=== PATIENT | male | born 1970 | race Caucasian/White ===

== ENCOUNTER 2024-04-19 11:52 | Emergency (ER) | payer OTHER, SELFPAY ==
--- NOTE | ~2024-04-19 | CT_ITS ---
EXAMINATION: CT CERVICAL SPINE WITHOUT IV CONTRAST HISTORY: trauma. TECHNIQUE: Helical CT of the cervical spine was performed per standard departmental protocol. Coronal and sagittal reformatted images were also evaluated. One or more of the following techniques was used for dose reduction: Automated exposure control, adjustment of the mA and/or kV according to patient size, use of iterative reconstruction technique. DLP: 656.11 mGy-cm COMPARISON: There are no prior studies for comparison. FINDINGS: CERVICAL SPINE: Osseous mineralization is normal. The vertebral bodies maintain normal height without evidence of fracture or subluxation. There is reversal of the normal cervical lordosis. There is moderate degenerative disc disease at the C5-6 level with disc space narrowing and osteophyte formation. Evaluation for disc pathology is limited by lack of intrathecal contrast material. BRAIN: The visualized portion of the brain is unremarkable. SINUSES: The visualized paranasal sinuses, mastoid air cells and middle ear cavities are unremarkable. LUNG APICES: The visualized lung apices are clear. SOFT TISSUES: The visualized paraspinal soft tissues are unremarkable. CT/CT cervical spine wo IV con IMPRESSION: Reversal of normal cervical lordosis. Moderate degenerative disc disease at the C5-6 level. No evidence of fracture or subluxation of the cervical spine. Electronically signed by: Alexis Trujillo MD 04/19/2024 01:59 PM [facility]
--- NOTE | ~2024-04-19 | XR_ITS ---
EXAMINATION: XR KNEE, LEFT CLINICAL INFORMATION: trauma COMPARISON: None available. TECHNIQUE: Four views of the left knee. FINDINGS: No acute cortical disruption or malalignment. There is a bipartite patella. There is suprapatellar bursa joint effusion, moderate to large volume. Mild joint space narrowing, medial compartment. Small marginal osteophyte formation in the posterior superior and posterior inferior patella. XR/XR knee LT 3V IMPRESSION: No acute fracture or dislocation. Suprapatellar bursa joint effusion, moderate to large volume. Internal derangement cannot be excluded. Electronically signed by: Jacob Dennis MD 04/19/2024 01:18 PM [facility] [place]
--- NOTE | ~2024-04-19 | CT_ITS ---
EXAMINATION: CT HEAD WITHOUT IV CONTRAST HISTORY: trauma. TECHNIQUE: Unenhanced helical CT of the head was performed per standard departmental protocol. Coronal and sagittal reformats of the head were also evaluated. One or more of the following techniques was used for dose reduction: Automated exposure control, adjustment of the mA and/or kV according to patient size, use of iterative reconstruction technique. DLP: 772.63 mGy-cm COMPARISON: There are no prior studies for comparison. FINDINGS: BRAIN: The brain parenchyma is unremarkable. There is normal kumar/white differentiation. The ventricular system is normal in size and configuration. There is no mass effect or midline shift. No intra- or extra-axial fluid collections are identified. SINUSES: The visualized paranasal sinuses are clear. The mastoid air cells and middle ear cavities are well pneumatized. ORBITS: The visualized orbits are unremarkable. BONES/SOFT TISSUES: The extracranial soft tissues are unremarkable. The calvarium is intact. No suspicious lytic or sclerotic lesions. CT/CT head/brain wo IV con IMPRESSION: Unremarkable unenhanced head CT. Electronically signed by: Alexis Trujillo MD 04/19/2024 01:55 PM [facility] [place]
[2024-04-19 12:43] VITALS: BP 152/103; PULSE 77; RESP 18; TEMP 35.7; O2SAT 96; BMI 31.7
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
[2024-04-19 16:34] VITALS: BP 150/103; PULSE 59; RESP 16; TEMP 36.6; O2SAT 98
[2024-04-19 16:38] LABS: MANUAL DIFF FLAG NO
[2024-04-19 16:39] LABS: Basophils Absolute Auto 0.1 X10*3/uL (0.0-0.2); Basophils Percent Auto 0.6 % (0-2); Eosinophils Absolute Auto 0.1 X10*3/uL (0.0-0.4); Eosinophils Percent Auto 1.1 % (0-4); Hemoglobin 16.1 g/dl (14.0-18.0); Imm Gran Abs Auto 0.03 X10*3/uL (0.00-0.03); Imm Gran Pct Auto 0.4 % (0.0-0.4); Lymphocytes Absolute Auto 2.6 X10*3/uL (1.2-4.9); Mean Corpuscular HGB Conc 34.3 g/dl (31.0-36.0); Mean Corpuscular Hemoglobin 30.7 pg (27.0-33.0); Mean Corpuscular Volume 89.5 fL (80.0-98.0); Mean Platelet Volume 10.9 fL (9.4-12.4); Monocytes Absolute Auto 0.5 X10*3/uL (0.1-1.2); Monocytes Percent Auto 6.1 % (2-11); Neutrophils Absolute Auto 4.9 x10*3/uL (2.0-8.3); Neutrophils Percent Auto 59.8 % (45-73); Platelet Count 182 X10*3/uL (160-400); Red Blood Count 5.25 X10*6/uL (4.60-5.80); Red Cell Distribution Width 13.5 % (11.0-16.0); White Blood Count 8.2 X10*3/uL (4.8-10.8)
[2024-04-19 16:53] LABS: Anion Gap 10 (12-20); Blood Urea Nitrogen 16 mg/dL (9-16); Calcium 9.2 mg/dL (8.4-10.2); Carbon Dioxide 28 mmol/L (22-29); Chloride 108 mmol/L (96-108); Creatinine Clr Calc Pharmacy 105.5; Estimated Glomerular Filt Rate > 60; Glucose Random 91 mg/dL (60-115); Sodium 142 mmol/L (135-145)
[2024-04-19] MEDS: Metoclopramide HCl 10 MG TABLET PO (17:15)
[2024-04-19] MEDS: Acetaminophen 325 MG TABLET 650 MG PO (17:15)
[2024-04-19] MEDS: Ibuprofen 600 MG TABLET PO (17:15)
[2024-04-19 17:33] VITALS: BP 152/103; PULSE 54; RESP 16; TEMP 36.8; O2SAT 98
[2024-04-19 17:48] VITALS: BP 152/103; PULSE 54; RESP 16; TEMP 36.8; O2SAT 98
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
--- OUTSIDE RECORDS SUMMARY | 2024-04-19 19:32 | XMS_ITS | Clinical Summary ---
Author Organization [address] [facility] Address [address] [place] [address] Phone Care Team Providers Care Signaler Name Role Phone Willy Cha MD Primary Care Provider [phone] Allergies No known active allergies Medications bisacodyL (DULCOLAX) 5 mg EC tablet Sig: Take 2 tablets by mouth right before your first dose of liquid prep. Active MULTIVITAMIN ORAL Take by mouth 1 (one) time each day. Active vitamin B comp and C no.3 (B Complex Plus Vitamin C) 24-01-20-5-300 mg capsule Take by mouth 1 (one) time each day. Active sildenafiL (VIAGRA) 100 mg tablet Take 1 tablet (100 mg total) by mouth as needed. Active testosterone cypionate (DEPO-TESTOTERO NE) 200 mg/mL injection Inject 0.05 mL into the muscle every 30 days. Active meloxicam (MOBIC) 15 mg tablet Take 1 tablet (15 mg total) by mouth 1 (one) time each day. Active Surgical History Surgery Date Site/Laterality Comments LEG SURGERY Right FEMUR FX SHOULDER SURGERY Right ELBOW SURGERY Right FINGER 3RD DIGIT RT (MIDDLE) Left TIP AMPUTATION, RECONNECTION Medical History Medical History Date Comments GERD (gastroesophageal reflux disease) Social History Tobacco Use Types Packs/Day Years Used Date Smoking Tobacco: Former Cigarettes Q uit: 2014 Tobacco Cessation:Counseling Given: Not Answered Alcohol Use Standard Drinks/Week Comments Yes 5 (1 standard drink = 0.6 oz pur e alcohol) WEEKLY Interpersonal Safety Answer Date Record ed Physical Abuse 01/11/2024 Verbal Abuse 01/11/2024 Sex and Gender Information Value Date Recorded Sex Assigned at Male 01/11/2024 3:07 PM EST Legal Sex Male 9:01 PM EST Gender Identity Male 01/11/2024 3:07 PM EST Sexual Orientation Straight 01/11/2024 3: 07 PM EST Obstetrics History Last Filed Vital Signs Vital Sign Reading Time Taken Comments Blood Pressure 131/99 01/11/2024 4:51 PM EST Pulse 62 01/11/2024 4:51 PM EST Temperature 36.4 ??C (97.6 ??F) 01/11/2024 4:31 PM ES T Respiratory Rate 19 01/11/2024 4:51 PM EST Oxygen Saturation 98% 01/11/2024 4:51 PM EST Inhaled Oxygen Concentration - - Weight 95.3 kg (210 lb) 01/11/2024 3:42 PM EST Height 175.3 cm (5' 9 ) 01/11/2024 3:42 PM EST Body Mass Index 31.01 01/11/2024 3:42 PM EST Plan of Treatment Health Maintenance Due Date Last Done Comments DTaP,Tdap,and Td Vaccines (1 - Tdap) 1987 Hepatitis B Vaccines (1 of 3 - 19+ 3-dose series) 1987 Pneumococcal Vaccine: 50+ Ye ars (1 of 1 - PCV) 2018 Zoster Vaccines (1 of 2) 2018 Cholesterol Screening (Lipid Panel) 03/19/2023 Depression Screening 03/19/2023 HIV Screening 03/19/2023 Hepatitis C Screening 03/19/2023 Social Influencers of Health Screening 03/19/2023 COVID-19 Vaccine ( - 2023-2 5 season) 2023 Influenza Vaccine (#1) 2023 Colorectal Cancer Screening: Colonoscopy 01/10/2034 01/11/2024 HIB Vaccines Aged Out No longer eligi ble based on patient's age to complete this topic HPV Vaccines Aged Out No longer eligi ble based on patient's age to complete this topic Hepatitis A Vaccines Aged Out No long er eligible based on patient's age to complete this topic IPV Vaccines Aged Out No longer eligi ble based on patient's age to complete this topic MMR Vaccines Aged Out No longer eligi ble based on patient's age to complete this topic Meningococcal ACWY Vaccine Aged Out N o longer eligible based on patient's age to complete this topic Meningococcal B Vacine Aged Out No lo nger eligible based on patient's age to complete this topic Pneumococcal Vaccine: Pediat rics (0 to 5 Years) and At-Risk Patients (6 to 64 Years) Aged Out No longer eligi ble based on patient's age to complete this topic RSV Immunization Patients Un eboni 20 months Aged Out No longer eligible b ased on patient's age to complete this topic Varicella Vaccines Aged Out No longer eligible based on patient's age to complete this topic Procedures Procedure Name Priority Date/Time Associated Diagnosis Comments COLONOSCOPY Routine 01/11/2024 4:30 PM EST Screen for colon cancer from Last 3 Months or Most Recently Relevant to Health Maintenance Results * COLONOSCOPY Anesthesia - MAC; [facility] ENDOSCOPY (01/11/2024 4:30 PM EST) Anatomical Region Laterality Modality Endoscopy 01/11/2024 4:12 PM EST Impressions 01/11/2024 4:33 PM EST - Internal hemorrhoids. ? - The examination was otherwise normal. ? - No specimens collected. Recommendation: ?- Discharge patient to home. ? - Repeat colonoscopy in 10 years for screening ? purposes. Narrative 01/11/2024 4:[address] [facility] Patient Name: Inderjit Mcclure Procedure Date: 01/11/2024 4:12 PM Date of : 1970 Age: 53 Room: ROOM 17 Gender: Male Note Status: Finalized Attending MD: Trang Traylor MD, Procedure Date No Time: 01/11/2024 Procedure: ? Colonoscopy Indications: ? Screening for colorectal malignant neoplasm Providers: ? Trang Traylor MD Referring MD: ?Willy Cha MD Medicines: ? Monitored Anesthesia Care Complications: ? No immediate complications. Estimated Blood Loss: ? Estimated blood loss: none. Procedure: ? Pre-Anesthesia Assessment: ? - Prior to the procedure, a History and Physical was ? performed, and patient medications and allergies were ? reviewed. The patient is competent. The risks and ? benefits of the procedure and the sedation options and ? risks were discussed with the patient. All questions ? were answered and informed consent was obtained. ? Patient identification and proposed procedure were ? verified by the physician, the nurse, the consumer science teacher ? and the customer support technician in the pre-procedure area in the ? endoscopy suite. Mental Status Examination: alert and ? oriented. Airway Examination: normal oropharyngeal ? airway and neck mobility. Respiratory Examination: ? clear to auscultation. CV Examination: normal. ? Prophylactic Antibiotics: The patient does not require ? prophylactic antibiotics. Prior Anticoagulants: The ? patient has taken no anticoagulant or antiplatelet ? agents. ASA Grade Assessment: II - A patient with mild ? systemic disease. After reviewing the risks and ? benefits, the patient was deemed in satisfactory ? condition to undergo the procedure. The anesthesia ? plan was to use monitored anesthesia care (MAC). ? Immediately prior to administration of medications, ? the patient was re-assessed for adequacy to receive ? sedatives. The heart rate, respiratory rate, oxygen ? saturations, blood pressure, adequacy of pulmonary ? ventilation, and response to care were monitored ? throughout the procedure. The physical status of the ? patient was re-assessed after the procedure. ? After I obtained informed consent, the scope was ? passed under direct vision. Throughout the procedure, ? the patient's blood pressure, pulse, and oxygen ? saturations were monitored continuously.The Olympus ? Pediatric Colonoscope was introduced through the anus ? and advanced to the cecum, identified by appendiceal ? orifice and ileocecal valve. The colonoscopy was ? performed without difficulty. The patient tolerated ? the procedure well. The quality of the bowel ? preparation was good. Findings: ?The perianal and digital rectal examinations were ? normal. ? Internal hemorrhoids were found during retroflexion. ? The hemorrhoids were Grade I (internal hemorrhoids ? that do not prolapse). ? The exam was otherwise without abnormality. Procedure Code(s): ? --- Professional --- ? G0121, Colorectal cancer screening; colonoscopy on ? individual not meeting criteria for high risk Diagnosis Code(s): ? --- Professional --- ? Z12.11, Encounter for screening for malignant neoplasm ? of colon CPT copyright 2020 [employer]. All rights reserved. The codes documented in this report are preliminary and upon tilting head band sawyer review may be revised to meet current compliance requirements. Trang Traylor MD 01/11/2024 4:33:32 PM This report has been signed electronically.Trang Traylor MD Number of Addenda: 0 Note Initiated On: 01/11/2024 4:12 PM Scope Withdrawal Time: 0 hours 5 minutes 46 seconds Scope In: 4:22:26 PM Scope Out: 4:30:43 PM ? Endoscopy Department at [facility] - [address] [place] [address], ? [place] [address] Procedure Note Trang Traylor MD - 01/11/2024 [facility] Patient Name: Inderjit Mcclure Procedure Date: 01/11/2024 4:12 PM Date of : 1970 Age: 53 Room: ROOM 17 Gender: Male Note Status: Finalized Attending MD: Trang Traylor MD, Procedure Date No Time: 01/11/2024 Procedure: Colonoscopy Indications: Screening for colorectal malignant neoplasm Providers: Trang Traylor MD Referring MD: Willy Cha MD Medicines: Monitored Anesthesia Care Complications: No immediate complications. Estimated Blood Loss: Estimated blood loss: none. Procedure: Pre-Anesthesia Assessment: - Prior to the procedure, a History and Physicalwas performed, and patient medications and allergieswere reviewed. The patient is competent. The risks and benefits of the procedure and the sedation optionsand risks were discussed with the patient. Allquestions were answered and informed consent was obtained. Patient identification and proposed procedure were verified by the physician, the nurse, theanesthetist and the customer support technician in the pre-procedure area in the endoscopy suite. Mental Status Examination: alertand oriented. Airway Examination: normal oropharyngeal airway and neck mobility. Respiratory Examination: clear to auscultation. CV Examination: normal. Prophylactic Antibiotics: The patient does notrequire prophylactic antibiotics. Prior Anticoagulants: The patient has taken no anticoagulant or antiplatelet agents. ASA Grade Assessment: II - A patient withmild systemic disease. After reviewing the risks and benefits, the patient was deemed in satisfactory condition to undergo the procedure. The anesthesia plan was to use monitored anesthesia care (MAC). Immediately prior to administration of medications, the patient was re-assessed for adequacy to receive sedatives. The heart rate, respiratory rate, oxygen saturations, blood pressure, adequacy of pulmonary ventilation, and response to care were monitored throughout the procedure. The physical status ofthe patient was re-assessed after the procedure. After I obtained informed consent, the scope was passed under direct vision. Throughout theprocedure, the patient's blood pressure, pulse, and oxygen saturations were monitored continuously.The Olympus Pediatric Colonoscope was introduced through theanus and advanced to the cecum, identified byappendiceal orifice and ileocecal valve. The colonoscopy was performed without difficulty. The patient tolerated the procedure well. The quality of the bowel preparation was good. Findings: The perianal and digital rectal examinations were normal. Internal hemorrhoids were found duringretroflexion. The hemorrhoids were Grade I (internal hemorrhoids that do not prolapse). The exam was otherwise without abnormality. Procedure Code(s): --- Professional --- G0121, Colorectal cancer screening; colonoscopy on individual not meeting criteria for high risk Diagnosis Code(s): --- Professional --- Z12.11, Encounter for screening for malignantneoplasm of colon CPT copyright 2020 [employer]. All rights reserved. The codes documented in this report are preliminary and upon tilting head band sawyer reviewmay be revised to meet current compliance requirements. Trang Traylor MD 01/11/2024 4:33:32 PM This report has been signed electronically.Trang Traylor MD Number of Addenda: 0 Note Initiated On: 01/11/2024 4:12 PM Scope Withdrawal Time: 0 hours 5 minutes 46 seconds Scope In: 4:22:26 PM Scope Out: 4:30:43 PM Endoscopy Department at [facility] - [address] [place] [phone] IMPRESSION: - Internal hemorrhoids. - The examination was otherwise normal. - No specimens collected. Recommendation: - Discharge patient to home. - Repeat colonoscopy in 10 years for screening purposes. Trang Traylor MD GI~PROCEDURE ORDERABLES Fin al Result from Last 3 Months or Most Recently Relevant to Health Maintenance Insurance MEDICAID [place] [employer] [place] [employer]AGE [address] [place] [address] Care Teams Signaler Relationship Specialty Start Date End Date Willy Cha MD PCP - General 10/02/22
--- OUTSIDE RECORDS SUMMARY | 2024-04-19 19:32 | XMS_ITS ---
Author Organization [facility] Address [address] [facility] [address] [place] [address] Care Team Providers Care Ice Guard Tester Name Role Phone WILLY CHA Primary Care Provider Willy Cha Unavailable [phone] REASON FOR VISIT Rx Refill Medications Medication SIG (Take, Route, Frequency, Duration) Notes Start Date End Date Status Meloxicam 15 MG 1 tablet Orally Once a day for 30 day(s) 07/08/2022 Active Testosterone Cypionate 200 MG/ML 0.5ml Intramuscular monthly 12/18/2022 Active Testosterone Cypionate 200 MG/ML 0.05ML Intramuscular Injection MONTHLY for 90 days 09/10/2022 Active Encounters Encounter Location Date Provider Diagnosis [address] [place] [address] 12/16/2022 WILLY CHA Right knee pain, unspecified chronicity M25.561 and Hypogonadism in male E29.1 Assessments Encounter Date Diagnosis (ICD Code) Assessment Notes Treatment Notes Treatment Clinical Notes Section Notes 12/16/2022 Right knee pain, unspecified chronicity (ICD-10 - M25.561) 12/16/2022 Hypogonadism in male (ICD-10 - E29.1) 07/30/22 Will give replacement testosterone injection Plan Of Treatment Medication Medication Name Sig Start Date Stop Date Notes Meloxicam 15 MG 1 tablet Orally Once a day for 30 day(s) 07/08/2022 Testosterone Cypionate 200 MG/ML 0.5ml Intramuscular monthly 12/18/2022 Testosterone Cypionate 200 MG/ML 0.05ML Intramuscular Injection MONTHLY for 90 days 09/10/2022 Progress Notes * Inderjit MCCLUREDOB:1970 (52 yo M)Acc No.[id number]:12/16/2022 Patient:?Inderjit Mcclure :1970???Age:52 Y???Sex:Male Address:[facility] [address] [place] [address], [place], [address] * Refills? Refill Meloxicam Tablet, 15 MG, Orally, 30, 1 tablet, Once a day, 30 day(s), Refills=3 Refill Testosterone Cypionate Solution, 200 MG/ML, Intramuscular Injection, 3, 0.05ML, MONTHLY, 90 days, Refills=2 Refill Testosterone Cypionate Solution, 200 MG/ML, Intramuscular, 4, 0.5ml, monthly, Refills=3 * true * Date:? Generated for Peña ash/Yrn/Saravanansmitting on:?04/19/2024 07:31 PM EST
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
--- OUTSIDE RECORDS SUMMARY | 2024-04-19 19:32 | XMS_ITS ---
Author Organization [facility] Address [address] [facility] [address] [place] [address] Care Team Providers Care Insurance Claim Representative Name Role Phone WILLY CHA Primary Care Provider Willy Cha Unavailable [phone] REASON FOR VISIT Nurse Visit: Testosterone Injection Medications Medication SIG (Take, Route, Frequency, Duration) Notes Start Date End Date Status Testosterone Cypionate 200 MG/ML 0.5 mL Intramuscular monthly 09/10/2022 Active Meloxicam 15 MG 1 tablet Orally Once a day for 30 day(s) 07/08/2022 01/07/2023 Active Testosterone Cypionate 200 MG/ML 0.05ML Intramuscular MONTHLY 09/10/2022 Active Sildenafil Citrate 100 MG 1 tablet as ne eded Orally Once a day 01/21/2022 Active Syringe/Needle (Disp) 23G X 1-1/2 3 ML SYRINGE/NEEDLE DX: R68.82 USE MONTHLY TO INJECT TESTOSTERONE 08/10/2022 Active Multi-Vitamin - 1 tablet Orally Once a day Active Vitamin B Complex - as directed Orally Active Encounters Encounter Location Date Provider Diagnosis [facility] [address] [facility] [address] [place] [address] 12/16/2022 WILLY CHA Hypogonadism in male E29.1 Assessments Encounter Date Diagnosis (ICD Code) Assessment Notes Treatment Notes Treatment Clinical Notes Section Notes 12/16/2022 Hypogonadism in male (ICD-10 - E29.1) 07/30/22 Will give replacement testosterone injection Plan Of Treatment No Information Medications Administered Medication Instructions Date of Administration Dosage Notes TESTOSTERONE 12/16/2022 0.5 mL Patient tole rated well. Progress Notes * Inderjit MCCLUREDOB:1970 (52 yo M)Acc No.[id number]:12/16/2022 Progress Note Patient:?Inderjit Mcclure Provider:?Willy Cha MD :1970???Age:52 Y???Sex:Male Kj e:12/16/2022 Address:[facility] [address] [place] [address], [place], [id number] Subjective: * Chief Complaints: * ???1. Nurse Visit: Testoster one Injection. * HPI: ???Constitutional:? Patient came in to office today for monthly testosterone injection. -SS-. * Medical History:? * Medications:?Taking Multi-Vi tamin - Tablet 1 tablet Orally Once a day, Taking Vitamin B Complex - Capsule as directed Orally , Taking Sildenafil Citrate 100 MG Tablet 1 tablet as needed Orally Once a day, Taking Syringe/Needle (Disp) 23G X 1-1/2 3 ML Miscellaneous SYRINGE/NEEDLE DX: R68.82 USE MONTHLY TO INJECT TESTOSTERONE, Taking Meloxicam 15 MG Tablet 1 tablet Orally Once a day, stop date 01/07/2023, Taking Testosterone Cypionate 200 MG/ML Solution 0.05ML Intramuscular MONTHLY, Taking Testosterone Cypionate 200 MG/ML Solution 0.5 mL Intramuscular monthly Objective: Assessment: * Assessment: 1.?Hypogonadism in male - E2 9.1 (Primary), 07/30/22 Will give replacement testosterone injection? Plan: * Treatment: * Therapeutic Injections:? TESTOSTERONE : 0.5 mL (Route: Intramuscular) given by Yisel Corbett on right gluteus (Hypogonadism in male) * Procedure Codes:? TESTOSTERO NE * Billing Information: * Visit Code:? 40596 Office Visit, Est Pt., Level 1. * Procedure Codes:? TESTOSTERONE. * Sign off status: Completed true * Provider:?Willy Cha MD Date:?2022 Generated for Johani ng/Faxing/eTransmitting on:?04/19/2024 07:31 PM EST History and Physical Notes * HPI (History of Present Illness) Category Sub-Category Detail Notes Category Not es Constitutional Patient came in to office today for monthly testosterone injection. -SS-
== END 2024-04-19 17:49 | disposition home or self-care (01) ==
PROVIDERS: Emergency Provider Student in an Organized Health Care Education/Training Program; PCP Internal Medicine
DX: G44.309 Post-traumatic headache, unspecified, not intractable (principal); M25.562 Pain in left knee
CPT/HCPCS: 36415; 70450; 72125; 73562; 80048; 85025; 99283; 99284

== ENCOUNTER → 2024-04-19 12:44 | Outpatient (BNV) | payer OTHER, SELFPAY | PROVIDERS: PCP Internal Medicine; Visit Provider Radiology Diagnostic Radiology | DX: S19.9XXA Unspecified injury of neck, initial encounter (principal); S09.90XA Unspecified injury of head, initial encounter; M25.462 Effusion, left knee | CPT/HCPCS: 70450; 72125; 73562 ==

== ENCOUNTER 2024-10-09 08:53 | Emergency (ER) | payer OTHER, SELFPAY ==
[2024-10-09 09:18] VITALS: BP 159/99; PULSE 65; RESP 16; TEMP 37; O2SAT 97; BMI 30.1
--- NOTE | 2024-10-09 09:22 | ED.SKABFB ---
HPI - Skin/Abscess/Foreign Bdy General Chief complaint: Skin/Abscess/Foreign Body Stated complaint: Rash around body for a week Time Seen by Provider: 10/09/24 09:23 Source: patient Mode of arrival: ambulatory Limitations: no limitations History of Present Illness ED Provider: BRYCE SCHUMACHER PA-C HPI narrative: 54 year old male presents to the ED today for evaluation of diffuse puritic body rash x1.5 weeks. Rash is to bilateral upper/lower extremities and torso. Denies rash to palms/soles. He has been taking Benadryl which temporarily relieves the itching. Admits to recent life stressors, had to put his 14 year old dog down last week. States he has been outside occasionally however denies any known tick or insect bites. Denies new lotions, soaps, detergents. Denies new medications or antibiotics. Related Data Previous Rx's ?Medication ?Instructions ?Recorded acetaminophen 650 mg 650 mg PO Q12H 3 days #6 tabs 04/19/24 tablet,extended release (Tylenol 8 Hour) metoclopramide HCl 5 mg tablet 5 mg PO DAILY 3 days #3 tabs 04/19/24 (Reglan) naproxen 500 mg tablet 500 mg PO BID 3 days #6 tabs 04/19/24 prednisone 50 mg tablet 50 mg PO DAILY 4 days #4 tabs 10/09/24 Allergies Allergy/AdvReac Type Severity Reaction Status Date / Time No Known Allergies Allergy Verified 10/09/24 09:19 Review of Systems Review of Systems: Yes all other systems are reviewed and are negative PMFSH Past Medical History Attestation statement: The following information was validated with the patient. Source: old records reviewed and nursing notes reviewed Social History Social History Advance Directives: No Advance Directives Information Provided: Yes Physical Exam Vital Signs: Vital Signs: Last Vital Signs Temp 98.6 F 10/09/24 11:47 Pulse 65 10/09/24 11:47 Resp 16 10/09/24 11:47 BP 159/99 H 10/09/24 11:47 Pulse Ox 97 10/09/24 11:47 O2 Del Method Room Air 10/09/24 09:18 BMI result Body Mass Index 30.1 hypertensive, vitals are otherwise wnl General: Well appearing, in no acute distress. Skin: + erythematous maculopapular rash noted to all 4 extremities and torso, no sloughing, spares palms/soles/mucous membranes/webbed spaces, no target lesions, non dermatomal pattern Head: Normocephalic, atraumatic. EENT: Hearing is intact b/l. Conjunctiva clear. Sclera is anicteric. PERRLA. EOM intact. Moist mucous membranes.? Cardiac: Chest wall symmetric. RRR Lungs: Normal respiratory effort without accessory muscle use. CTA bilaterally. Back: No midline spinous or paraspinal tenderness. No step off deformity. Ext: +see above Medications Administered Discontinued Medications Generic Name Dose Route Start Last Admin Trade Name Freq PRN Reason Stop Dose Admin Diphenhydramine HCl 50 mg 10/09/24 11:26 10/09/24 11:39 Diphenhydramine Hcl 25 Mg Capsule PO 10/09/24 11:27 50 mg ONCE ONE Administration Methylprednisolone Sodium Succinate 60 mg 10/09/24 11:26 10/09/24 11:39 Methylprednisolone Sod Succ 125 Mg/2 Ml Vial IM 10/09/24 11:27 60 mg ONCE ONE Administration Medical Decision Making Medical Decision Making [facility] Narrative: 54 year old male presents to the ED today for evaluation of diffuse puritic body rash x1.5 weeks. hypertensive, vitals are otherwise wnl. he is well appearing, in NAD. on exam there is an erythematous maculopapular rash noted to all 4 extremities and torso, no sloughing, spares palms/soles/mucous membranes/webbed spaces, no target lesions, non dermatomal pattern. Differential diagnosis includes contact/atopic/eczematous dermatitis, psoriasis. History and exam findings not consistent with lyme/tick bourne illness, herpes zoster/simplex, scabies, HFM,? dangerous etiologies of rash such as SJS/TEN, or secondary dangerous causes such as petechial rashes from thrombocytopenia or rickettsial infections.? Plan at this time is to treat symptomatically, instruct to follow up with PCP or derm PRN. Differential Diagnosis Differential Diagnoses: The differential diagnosis associated with the presentation includes As above Admission/Observation not indicated Lab Data [facility] Lab Attestation statement: I reviewed the patient's lab results. As above 10/09/24 09:28 10/09/24 09:28 Labs: Lab Results 10/09/24 10/09/24 Range/Units 09:28 11:34 WBC 6.6 (4.8-10.8) X10*3/uL RBC 4.87 (4.60-5.80) X10*6/uL Hgb 14.8 (14.0-18.0) g/dl Hct 44.5 (42.0-52.0) % MCV 91.4 (80.0-98.0) fL MCH 30.4 (27.0-33.0) pg MCHC 33.3 (31.0-36.0) g/dl RDW 13.1 (11.0-16.0) % Plt Count 166 (160-400) X10*3/uL MPV 11.6 (9.4-12.4) fL Immature Gran % (Auto) 0.3 (0.0-0.4) % Neut % (Auto) 65.2 (45-73) % Lymph % (Auto) 24.3 (20-40) % [place] % (Auto) 6.5 (2-11) % Eos % (Auto) 2.9 (0-4) % Baso % (Auto) 0.8 (0-2) % Lymph # (Auto) 1.6 (1.2-4.9) X10*3/uL [place] # (Auto) 0.4 (0.1-1.2) X10*3/uL Eos # (Auto) 0.2 (0.0-0.4) X10*3/uL Baso # (Auto) 0.1 (0.0-0.2) X10*3/uL Abs Immat Gran (auto) 0.02 (0.00-0.03) X10*3/uL Absolute Neuts (auto) 4.3 (2.0-8.3) x10*3/uL Absolute Nucleated RBC 0.000 (0.0-0.012) X10*3/uL Nucleated RBC % (auto) 0.0 (0.0-0.2) /100WBC Sodium 140 (135-145) mmol/L Potassium 4.4 (3.3-5.1) mmol/L Chloride 109 H (96-108) mmol/L Carbon Dioxide 23 (22-29) mmol/L Anion Gap 12 (12-20) BUN 13 (9-16) mg/dL Creatinine 0.85 (0.5-1.4) mg/dL Estim Creat Clear Calc 109.0 Estimated GFR > 60 Random Glucose 121 H (60-115) mg/dL Calcium 8.8 (8.4-10.2) mg/dL Total Bilirubin 0.5 (0.0-1.0) mg/dL AST 28 (5-37) U/L ALT 29 (0-40) U/L Alkaline Phosphatase 62 (39-117) U/L Total Protein 6.8 (6.5-8.0) g/dL Albumin 4.0 (3.5-5.0) g/dL A.phagocytophil DNA PCR NOT DETECTED (NOT DETECTED) Babesia microti DNA PCR NOT DETECTED (NOT DETECTED) Borrelia sp DNA (PCR) NOT DETECTED (NOT DETECTED) Lyme Screen IgG & IgM <0.90 index Lyme Progressive Test TNP Borrelia miyamotoi (PCR) NOT DETECTED (NOT DETECTED) E.chaffeensis DNA (PCR) NOT DETECTED (NOT DETECTED) Tick-borne Disease PCR SEE NOTE Prescription Management I considered prescription management with: Other (prednisone) Social Determinants Patient?s care significantly limited by Social Determinants of Health including: Other Social Determinant of Health Critical Care Time Critical Care Time Critical Care Time: No Discharge Plan Discharge Clinical Impression: Rash Patient Disposition: Home, Self-Care Instructions: Acute Rash (ED) Additional Instructions: You were evaluated in the ED today for rash. Your blood work is reassuring. Your blood has been sent for tick/ lyme testing. This testing will take a few days to results. You will be contacted with any positive results. As of now, the etiology of your rash is unclear. A four day course of Prednisone has been sent to your pharmacy. Please take this over the next 4 days starting tomorrow. You already received a dose of steroids in the ED today. You may also take OTC Benadryl and/or Zyrtec as needed for itching. Please follow-up with your primary care provider regarding your visit today. You have also been provided with a referral to a electric razor assembler for follow-up. Please call him to make a an appointment. They will not call you Return to the Emergency Department if you experience worsening or spreading rash, worsening or uncontrolled pain, fevers 100.4?F or greater, recurrent vomiting, shortness of breath, discharge from your rash, or any other concerning symptoms. In the case of an emergency call 911. Prescriptions: New prednisone 50 mg tablet 50 mg PO DAILY 4 Days Qty: 4 0RF No Action metoclopramide HCl [Reglan] 5 mg tablet 5 mg PO DAILY 3 Days Qty: 3 0RF acetaminophen [Tylenol 8 Hour] 650 mg tablet extended release 650 mg PO Q12H 3 Days Qty: 6 0RF naproxen 500 mg tablet 500 mg PO BID 3 Days Qty: 6 0RF Referrals: [facility] [Provider Group] Philip Shultz MD [Physician, Allergy & Immunology] Willy Cha MD [Primary Care Provider, Integrative Medicine] Interventions: ED Discharge Assessment Last Done: 10/09/24 11:47 Discharge Date/Time: 10/09/24 11:47 Print Language: Grenadian
[2024-10-09 09:33] LABS: MANUAL DIFF FLAG NO
[2024-10-09 09:36] LABS: Hematocrit 44.5 % (42.0-52.0); Hemoglobin 14.8 g/dl (14.0-18.0); Imm Gran Abs Auto 0.02 X10*3/uL (0.00-0.03); Imm Gran Pct Auto 0.3 % (0.0-0.4); Lymphocytes Absolute Auto 1.6 X10*3/uL (1.2-4.9); Mean Corpuscular HGB Conc 33.3 g/dl (31.0-36.0); Mean Corpuscular Hemoglobin 30.4 pg (27.0-33.0); Mean Corpuscular Volume 91.4 fL (80.0-98.0); NRBC Abs Auto 0.000 X10*3/uL (0.0-0.012); NRBC Pct Auto 0.0 /100WBC (0.0-0.2); Platelet Count 166 X10*3/uL (160-400); Red Blood Count 4.87 X10*6/uL (4.60-5.80); White Blood Count 6.6 X10*3/uL (4.8-10.8)
[2024-10-09 10:03] LABS: Alanine Aminotransferase 29 U/L (0-40); Albumin Level 4.0 g/dL (3.5-5.0); Alkaline Phosphatase 62 U/L (39-117); Anion Gap 12 (12-20); Aspartate Amino Transferase 28 U/L (5-37); Blood Urea Nitrogen 13 mg/dL (9-16); Calcium 8.8 mg/dL (8.4-10.2); Carbon Dioxide 23 mmol/L (22-29); Chloride 109 mmol/L (96-108); Creatinine Clr Calc Pharmacy 109.0; Estimated Glomerular Filt Rate > 60; Potassium 4.4 mmol/L (3.3-5.1); Sodium 140 mmol/L (135-145); Total Protein 6.8 g/dL (6.5-8.0)
[2024-10-09 11:47] VITALS: BP 159/99; PULSE 65; RESP 16; TEMP 37; O2SAT 97
--- OUTSIDE RECORDS SUMMARY | 2024-10-09 12:49 | XMS_ITS | Clinical Summary ---
Author Organization [address] [facility] Address [address] [place] [address] Phone Care Team Providers Care Instructional Materials Director Name Role Phone Willy Cha MD Primary Care Provider [phone] Allergies No known active allergies Medications bisacodyL (DULCOLAX) 5 mg EC tablet Sig: Take 2 tablets by mouth right before your first dose of liquid prep. Active MULTIVITAMIN ORAL Take by mouth 1 (one) time each day. Active vitamin B comp and C no.3 (B Complex Plus Vitamin C) 25-91-56-5-300 mg capsule Take by mouth 1 (one) [...] 62 01/11/2024 4:51 PM EST Temperature 36.4 C (97.6 F) 01/11/2024 4:31 PM EST Respiratory Rate 19 01/11/2024 4:51 PM EST [...] 2) 2018 Cholesterol Screening (Lipid Panel) 03/19/2023 HIV Screening 03/19/2023 Hepatitis C Screening 03/19/2023 Social Influencers of Health Screening 03/19/2023 COVID-19 Vaccine (1 - 2023-2 5 season) 2023 Depression Screening 02/23/2024 Influenza Vaccine (#1) 2024 Colorectal Cancer Screening: Colonoscopy 01/10/2034 01/11/2024 HIB [...] age to complete this topic Meningococcal B Vaccine Aged Out No l onger eligible based on patient's age to complete [...] Maintenance Results * COLONOSCOPY Anesthesia - MAC; [facility] ENDOSCOPY (01/11/2024 4:30 PM EST) Anatomical Region Laterality Modality Endoscopy 01/11/2024 4:12 PM EST Impressions 01/11/2024 4:33 PM EST - Internal hemorrhoids. - The examination was otherwise normal. - No specimens collected. Recommendation: - Discharge patient to home. - Repeat colonoscopy in 10 years for screening purposes. Narrative 01/11/2024 4:33 PM EST [facility] GI Patient Name: Inderjit Mcclure Procedure Date: [...] the procedure, a History and Physical was performed, and patient medications and allergies were reviewed. The patient is competent. The risks and benefits of the procedure and the sedation options and risks were discussed with the patient. All questions were answered and informed consent was obtained. Patient identification and proposed procedure were verified by the physician, the nurse, the spray mixer and the contract technician in the pre-procedure area in the endoscopy suite. Mental Status Examination: alert and oriented. Airway Examination: normal oropharyngeal airway and neck mobility. Respiratory Examination: clear to auscultation. CV Examination: normal. Prophylactic Antibiotics: The patient does not require prophylactic antibiotics. Prior Anticoagulants: The patient has taken no anticoagulant or antiplatelet agents. ASA Grade Assessment: II - A patient with mild systemic disease. After reviewing the risks and [...] monitored throughout the procedure. The physical status of the patient was re-assessed after the procedure. After I obtained informed consent, the scope was passed under direct vision. Throughout the procedure, the patient's blood pressure, pulse, and oxygen saturations were monitored continuously.The Olympus Pediatric Colonoscope was introduced through the anus and advanced to the cecum, identified by appendiceal orifice and ileocecal valve. The colonoscopy was performed without difficulty. The patient tolerated the procedure well. The quality of the bowel preparation was good. Findings: The perianal and digital rectal examinations were normal. Internal hemorrhoids were found during retroflexion. The hemorrhoids were Grade I (internal hemorrhoids that do not prolapse). The exam was otherwise without abnormality. Procedure Code(s): --- Professional --- G0121, Colorectal cancer screening; colonoscopy on individual not meeting criteria for high risk Diagnosis Code(s): --- Professional --- Z12.11, Encounter for screening for malignant neoplasm of colon CPT copyright 2020 [employer]. All rights reserved. The codes documented in this report are preliminary and upon blender / cook review may be revised to meet current compliance requirements. Trang Traylor MD 01/11/2024 4:33:32 PM This report has been signed electronically.Trang Traylor MD Number of Addenda: 0 Note Initiated On: 01/11/2024 4:12 PM Scope Withdrawal Time: 0 hours 5 minutes 46 seconds Scope In: 4:22:26 PM Scope Out: 4:30:43 PM Endoscopy Department at [facility] - [address] [place] [phone] Procedure Note Trang Traylor MD - 01/11/2024 [facility] GI Patient Name: Inderjit Mcclure Procedure Date: [...] the physician, the nurse, theanesthetist and the contract technician in the pre-procedure area in the [...] for malignantneoplasm of colon CPT copyright 2020 [employer]. All rights reserved. The codes documented in this report are preliminary and upon blender / cook reviewmay be revised to meet current compliance requirements. Trang Traylor MD 01/11/2024 4:33:32 PM This report has been signed electronically.Trang Traylor MD Number of Addenda: 0 Note Initiated On: 01/11/2024 4:12 PM Scope Withdrawal Time: 0 hours 5 minutes 46 seconds Scope In: 4:22:26 PM Scope Out: 4:30:43 PM Endoscopy Department at [facility] - [address] [place] [phone] IMPRESSION: - Internal hemorrhoids. - The examination was otherwise normal. - No specimens collected. Recommendation: - Discharge patient to home. - Repeat colonoscopy in 10 years for screening purposes. Trang Traylor MD GI~PROCEDURE ORDERABLES Fin al Result from Last 3 Months or Most Recently Relevant to Health Maintenance Insurance [place]ICAID [place] [employer] [place] Member Subscriber Plan / Payer (Ef fective 2023-Present) Name:Inderjit Mcclure Relation to Subscriber:Self Name:Inderjit Mcclure Payer ID:[id number] Type:Not on file Address: [address] [place] [phone] Care Teams Instructional Materials Director Relationship Specialty Start Date End Date Willy Cha MD PCP - General 10/02/22
[2024-10-10 18:28] LABS: Lyme Abs Screen <0.90 index
[2024-10-10 23:39] LABS: A. Phagocytphilium DNA,RT-PCR NOT DETECTED (NOT DETECTED); Babesia Microti DNA, RT-PCR NOT DETECTED (NOT DETECTED); Borrelia Miyamotoi,DNA RT-PCR NOT DETECTED (NOT DETECTED); E.Chaffeensis DNA RT-PCR NOT DETECTED (NOT DETECTED); Lyme(Borrelia ssp)DNA RT-PCR NOT DETECTED (NOT DETECTED)
== END 2024-10-09 11:47 | disposition home or self-care (01) ==
PROVIDERS: Physician Assistant Medical; Emergency Provider Emergency Medicine; PCP Internal Medicine
DX: R21 Rash and other nonspecific skin eruption (principal)
CPT/HCPCS: 36415; 80053; 85025; 86617; 86618; 87468; 87469; 87478; 87484; 87798; 96372; 99282; 99284; J2919

== ENCOUNTER 2025-01-08 13:28 | Outpatient (AMB) | payer OTHER, SELFPAY ==
--- NOTE | 2025-01-08 13:30 | A.OFFVIS_ITS ---
Intake Visit Reasons: Left knee pain and giving way, Left hip pain Intake Note: Inderjit is a 54 year old male who present today for his left knee pain. On 04/19/2024 patient was treated at [facility] emergency department after slipping on ice and falling. He reports injuring the left knee at the time of his fall. Today he expresses an increase of pain in the left knee that is now radiating into the posterior left hip and into the low back. Says he had his left knee drained a few times at [facility] with relief, they switched his provider at [facility] and wants a second opinion. Had his left knee aspirated and injected roughly 6-7 months ago he says. He has tried a home exercise program and physical therapy exercises which aggravated his pain. He has failed the last 6 weeks of conservative treatment. He states that his left knee will give out several times per day. He denies any pain in his left groin. 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 Physical Exam Const Other: Well-nourished well-developed very friendly male awake alert and oriented x3 in no acute distress Extrem Other: Left hip examination shows full range of motion when compared to his right hip, tenderness over his left sacroiliac joint, no tenderness over his bursa Left knee examination shows a minimal effusion, minimal crepitus with range of motion, tenderness along his medial joint line, positive Itz's test, no instability Results Reviewed Results Reviewed: Standing full weight-bearing x-rays of the patient's left knee show mild diffuse joint space narrowing, no acute bony abnormalities X-rays of the patient's left hip show mild to moderate joint space narrowing Assessment & Plan Assessment & Plan (1) Left hip pain: Code(s): M25.552 - Pain in left hip Category: Medical (2) Tear of medial meniscus of left knee: Code(s): S83.242A - Other tear of medial meniscus, current injury, left knee, initial encounter Category: Medical Plan Mr. Mcclure presents with left knee pain and mechanical symptoms most likely due to a medial meniscus tear. Thus, I will send him for an MRI of his left knee for further evaluation. He will contact me prior to his MRI should his symptoms worsen in any way. Feel free to call me at any time should questions regarding his orthopedic management arise. I spent 22 minutes in reviewing the patient's records and imaging studies, seeing the patient and documenting in the medical record. Orders: Orders XR hip LT min 2V 01/08/25 M25.552 - Pain in left hip MR knee LT wo con Today S83.242A - Other tear of medial meniscus, current injury, left knee, initial encounter Medications: Discontinued acetaminophen ER (Tylenol 8 Hour) Discontinued Reason: Patient no longer taking 650 mg PO Q12H 3 days 6 tabs 0RF metoclopramide HCl (Reglan) Discontinued Reason: Patient no longer taking 5 mg PO DAILY 3 days 3 tabs 0RF naproxen Discontinued Reason: Patient no longer taking 500 mg PO BID 3 days 6 tabs 0RF prednisone Discontinued Reason: Patient no longer taking 50 mg PO DAILY 4 days 4 tabs 0RF Coding Level of Care Code New Pt Level 3 (09163) Complex EM visit Add On G2211 Diagnoses Left hip pain M25.552 Tear of medial meniscus of left knee S83.242A
== END 2025-01-08 14:06 | disposition home or self-care (01) ==
LOC: HO.HOS 13:29
PROVIDERS: PCP Internal Medicine; Visit Provider Orthopaedic Surgery
DX: M25.552 Pain in left hip (principal); S83.242A Other tear of medial meniscus, current injury, left knee, initial encounter
CPT/HCPCS: 99203; G2211

== ENCOUNTER 2025-01-08 13:28 | Outpatient (REF) | payer OTHER, SELFPAY ==
--- NOTE | ~2025-01-08 | XR_ITS ---
EXAMINATION: XR HIP, LEFT CLINICAL INFORMATION: M25.552 - Pain in left hip COMPARISON: None available. TECHNIQUE: AP and oblique views of the left hip. FINDINGS: There is a cortical irregularity and disruption at the junction of the femoral head neck without gross malalignment. Sclerosis in the articular surface of the left acetabulum. No lytic or blastic lesions. XR/XR hip LT min 2V IMPRESSION: Concerning Subcapital fracture, left femur. Findings communicated to the requesting physician Dr. Steve Moctezuma MD on January 08, 2025 at 2:44 PM via [employer]. Acknowledged Response at 3:33 PM Electronically signed by: Jacob Dennis MD 01/08/2025 03:36 PM [facility]
--- OUTSIDE RECORDS SUMMARY | 2025-01-09 03:20 | XMS_ITS | Clinical Summary ---
Author Organization [address] [facility] Address [address] [place] [address] Phone Care Team Providers Care Long Line Teamster Name Role Phone Willy Cha MD Primary Care Provider [phone] Allergies No known active allergies Medications bisacodyL (DULCOLAX) 5 mg EC tablet Sig: Take 2 tablets by mouth right before your first dose of liquid prep. Active MULTIVITAMIN ORAL Take by mouth 1 (one) time each day. Active vitamin B comp and C no.3 (B Complex Plus Vitamin C) 86-71-54-5-300 mg capsule Take by mouth 1 (one) [...] Years Used Date Smoking Tobacco: Former Cigarettes 0 Q uit: 2014 Tobacco Cessation:Counseling Given: Not Answered Alcohol Use Standard Drinks/Week Comments Yes 5 (1 standard drink = 0.6 oz pur e alcohol) WEEKLY Interpersonal Safety Answer Date Record ed Physical Abuse Unrecognized value 01/11/2024 Verbal Abuse Unrecognized value 01/11/2024 Sex and Gender Information Value Date [...] 03/19/2023 Social Influencers of Health Screening 03/19/2023 Depression Screening 02/23/2024 COVID-19 Vaccine ( - 2024-2 6 season) 2024 Influenza Vaccine (#1) 2024 Colorectal Cancer Screening: Colonoscopy 01/10/2034 01/11/2024 RSV Immunization Adult Patie nts (1 - 1-dose 75+ series) 2043 HIB Vaccines Aged Out No longer eligi [...] Maintenance Results * COLONOSCOPY Anesthesia - MAC; [facility] ENDOSCOPY (01/11/2024 4:30 PM EST) Anatomical Region Laterality Modality Endoscopy 01/11/2024 4:12 PM EST Impressions 01/11/2024 4:33 PM EST - Internal hemorrhoids. - The examination was otherwise normal. - No specimens collected. Recommendation: - Discharge patient to home. - Repeat colonoscopy in 10 years for screening purposes. Narrative 01/11/2024 4:33 PM EST [facility] GI Patient Name: Inderjit Mcclure Procedure Date: [...] verified by the physician, the nurse, the dowel pointer and the airframe technician in the pre-procedure area in the [...] malignant neoplasm of colon CPT copyright 2020 [employer]. All rights reserved. The codes documented in this report are preliminary and upon patient safety officer review may be revised to meet current compliance requirements. Trang Traylor MD 01/11/2024 4:33:32 PM This report has been signed electronically.Trang Traylor MD Number of Addenda: 0 Note Initiated On: 01/11/2024 4:12 PM Scope Withdrawal Time: 0 hours 5 minutes 46 seconds Scope In: 4:22:26 PM Scope Out: 4:30:43 PM Endoscopy Department at [facility] - [address] [place] [id number] Procedure Note Trang Traylor MD - 01/11/2024 [facility] GI Patient Name: Inderjit Mcclure Procedure Date: [...] the physician, the nurse, theanesthetist and the airframe technician in the pre-procedure area in the [...] for malignantneoplasm of colon CPT copyright 2020 [employer]. All rights reserved. The codes documented in this report are preliminary and upon patient safety officer reviewmay be revised to meet current compliance requirements. Trang Traylor MD 01/11/2024 4:33:32 PM This report has been signed electronically.Trang Traylor MD Number of Addenda: 0 Note Initiated On: 01/11/2024 4:12 PM Scope Withdrawal Time: 0 hours 5 minutes 46 seconds Scope In: 4:22:26 PM Scope Out: 4:30:43 PM Endoscopy Department at [address] [id number] IMPRESSION: - Internal hemorrhoids. - The examination was otherwise normal. - No specimens collected. Recommendation: - Discharge patient to home. - Repeat colonoscopy in 10 years for screening purposes. Trang Traylor MD GI~PROCEDURE ORDERABLES Fin al Result from Last 3 Months or Most Recently Relevant to Health Maintenance Insurance [place] - [place] [facility] Care Teams Long Line Teamster Relationship Specialty Start Date End Date Willy Cha MD PCP - General 10/02/22
== END 2025-01-08 13:29 | disposition home or self-care (01) ==
LOC: HO.HOSX 13:28
PROVIDERS: PCP Internal Medicine; Visit Provider Orthopaedic Surgery
DX: S83.242D Other tear of medial meniscus, current injury, left knee, subsequent encounter (principal); W00.0XXD Fall on same level due to ice and snow, subsequent encounter; M25.552 Pain in left hip
CPT/HCPCS: 73502

== ENCOUNTER → 2025-01-08 13:54 | Outpatient (BNV) | payer OTHER, SELFPAY | PROVIDERS: PCP Internal Medicine; Visit Provider Radiology Diagnostic Radiology | DX: M25.552 Pain in left hip (principal) | CPT/HCPCS: 73502 ==

== ENCOUNTER → 2025-02-05 17:47 | Outpatient (BNV) | payer OTHER, SELFPAY | PROVIDERS: Visit Provider Radiology Diagnostic Ultrasound | DX: S83.242A Other tear of medial meniscus, current injury, left knee, initial encounter (principal); M23.342 Other meniscus derangements, anterior horn of lateral meniscus, left knee; M17.12 Unilateral primary osteoarthritis, left knee; M25.462 Effusion, left knee | CPT/HCPCS: 73721 ==

== ENCOUNTER 2025-02-05 17:50 | Outpatient (REF) | payer OTHER, SELFPAY ==
--- NOTE | ~2025-02-05 | MR_ITS ---
EXAMINATION: MR KNEE WITHOUT CONTRAST, LEFT CLINICAL INFORMATION: Tear of medial meniscus COMPARISON: X-ray 04/19/2024 TECHNIQUE: MRI of the knee without contrast was performed using routine sequences on a high-field scanner. FINDINGS: MENISCI: Medial Meniscus: Degeneration of posterior horn. Superior surface tear of the posterior root/central posterior horn. Partial medial extrusion of the body. Prominent intrasubstance T2 signal in the body, contacting the free edge/undersurface, from possible tear. Lateral Meniscus: Tibial articular surface degenerative fraying of the anterior horn. Inner margin fraying of the posterior root/central posterior horn. LIGAMENTS: Cruciate: ACL mucoid degeneration. Intact PCL. There is small intermediate intensity focus in the anterior intercondylar region, which could represent mild synovitis. Collateral: Intact EXTENSOR MECHANISM: Intact ARTICULAR CARTILAGE/BONE: Patellofemoral Compartment: Mild arthritis. Foci of patellar and trochlea chondral thinning. Medial Compartment: Moderate arthritis. Nonuniform chondral loss. Focus of subchondral edema. Lateral Compartment: No significant chondral loss No acute fracture. Multipartite patella. JOINT FLUID AND BURSAE: Small-moderate effusion. 8 mm loose body posterior to the femoral metaphysis. MR/MR knee LT wo con IMPRESSION: 1. Tear of the posterior root/central posterior horn of the medial meniscus. Degeneration plus/minus tear in the body. 2. Degenerative fraying of the anterior horn lateral meniscus. Inner margin fraying of the posterior root/central posterior horn. 3. ACL mucoid degeneration. 4. Mild patellofemoral and moderate medial compartment arthritis. 5. Small-moderate effusion. 8 mm loose body posterior to the femoral metaphysis. 6. Additional findings as above Electronically signed by: Salinas Julien MD 02/06/2025 04:00 PM [facility]
--- OUTSIDE RECORDS SUMMARY | 2025-02-05 22:45 | XMS_ITS | Clinical Summary ---
Author Organization [address] [facility] Address [address] [place] [address] Phone Care Team Providers Care Independent Trader Name Role Phone Willy Cha MD Primary Care Provider [phone] Allergies No known active allergies Medications bisacodyL (DULCOLAX) 5 mg EC tablet Sig: Take 2 tablets by mouth right before your first dose of liquid prep. Active MULTIVITAMIN ORAL Take by mouth 1 (one) time each day. Active vitamin B comp and C no.3 (B Complex Plus Vitamin C) 51-87-65-5-300 mg capsule Take by mouth 1 (one) [...] Orientation Straight 01/11/2024 3: 07 PM EST Last Filed Vital Signs Vital Sign Reading [...] Maintenance Results * COLONOSCOPY Anesthesia - MAC; [email or web address] ENDOSCOPY (01/11/2024 4:30 PM EST) Anatomical Region Laterality Modality Endoscopy 01/11/2024 4:12 PM EST Impressions 01/11/2024 4:33 PM EST - Internal hemorrhoids. - The examination was otherwise normal. - No specimens collected. Recommendation: - Discharge patient to home. - Repeat colonoscopy in 10 years for screening purposes. Narrative 01/11/2024 4:33 PM EST [facility] GI Patient Name: Inderjit Mcclure Procedure [...] verified by the physician, the nurse, the account support specialist and the cooling tower technician in the pre-procedure area in the [...] malignant neoplasm of colon CPT copyright 2020 [employer]. All rights reserved. The codes documented in this report are preliminary and upon side laster review may be revised to meet current compliance requirements. Trang Traylor MD 01/11/2024 4:33:32 PM This report has been signed electronically.Trang Traylor MD Number of Addenda: 0 Note Initiated On: 01/11/2024 4:12 PM Scope Withdrawal Time: 0 hours 5 minutes 46 seconds Scope In: 4:22:26 PM Scope Out: 4:30:43 PM Endoscopy Department at [facility] - [address] [place] [id number] Procedure Note Trang Traylor MD - 01/11/2024 [facility] GI Patient Name: Inderjit Mcclure Procedure [...] the physician, the nurse, theanesthetist and the cooling tower technician in the pre-procedure area in the [...] for malignantneoplasm of colon CPT copyright 2020 [employer]. All rights reserved. The codes documented in this report are preliminary and upon side laster reviewmay be revised to meet current compliance requirements. Trang Traylor MD 01/11/2024 4:33:32 PM This report has been signed electronically.Trang Traylor MD Number of Addenda: 0 Note Initiated On: 01/11/2024 4:12 PM Scope Withdrawal Time: 0 hours 5 minutes 46 seconds Scope In: 4:22:26 PM Scope Out: 4:30:43 PM Endoscopy Department at [address] [phone] IMPRESSION: - Internal hemorrhoids. - The examination was otherwise normal. - No specimens collected. Recommendation: - Discharge patient to home. - Repeat colonoscopy in 10 years for screening purposes. Trang Traylor MD GI~PROCEDURE ORDERABLES Fin al Result from Last 3 Months or Most Recently Relevant to Health Maintenance Insurance [place] - [place] Care Teams Independent Trader Relationship Specialty Start Date End Date Willy Cha MD PCP - General 10/02/22
--- OUTSIDE RECORDS SUMMARY | 2025-02-05 22:45 | XMS_ITS | Data Portability ---
Author Organization PRACHI Matias Parker [facility] Surgeons [facility], [facility] Address [address] [place] [address] Care Team Providers Care Program Research Specialist Name Role Phone BRANT FELIPE Referring Provider [phone] PANFILO WINTERS Primary Care Provider [phone] Assessment Encounter Date Assessment Date Assessment LastModified by Organization Details LastModified Time 03/17/2024 03/17/2024 Assessment: Full symm ROM Plan : DC I HEP [email or web address] Not available 03/17/2024 10:28:38 Plan of Treatment Reminders Order Date Submit Date Provider Last Modified By Organization Details Last Modified Time Details Appointments None recorded. Lab None recorded. 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 Surgeries None recorded. Imaging XR, shoulder, 2 or more view - RM 110 R SHLDR 4V 2024 025 JENNINGS [facility], [address], [address], [place], [address], 5 15:59:16 XR, cervical spine, 1 view 2024 025 NIKKI [facility], [address], [address], [place], [address], 5 15:56:43 Medication Orders Medrol (Jamil) 4 mg tablets in a dose pack 2024 025 [facility], [address] [place] [address], [address], 10:05:29 Celebrex 200 mg capsule 2024 025 [facility], [address] [place] [address], [address], 10:05:29 Patient TargetsNo targets recorded. Patient InstructionsNo instructions recorded. Reason for Referral Physical Therapist Referral for Disorder of left sciatic nerve Dx: Left sided sciatica and L knee OATx for L-sided sciatica and then move into a knee OA program Referring Physician: Jeremías Claros, Orthopedic Surgery, Encounter Date: 09/19/2024 Results Created Date Observation Date Name Description Value Unit Range Abnormal Flag Note LastModifiedBy Organization Detail LastModifiedTime 03/14/19 25 03/14/2024 XR, knee, 4 or more view [email or web address] ?Encry pted=s hAaTro YD8dLq bEUv6g %2BXZw aYqtaq 0bqfl% 2Fg9IQ a4ajBk vP9nXo QUaueC m3YtLR FvZlgJ JJ8mAn HZtai3 2g1246 AC0Kqb 3qFUaq mKiQtr MwF INTERFACE [facility] [address] [facility] [address], [place], [address], 03/14/2024 09:41:48 03/14/19 25 03/14/2024 XR, knee, 4 or more view [email or web address] ?Encry pted=s hAaTro YD8dLq bEUv6g %2BXZw aYqtaq 0bqfl% 2Fg9IQ a4ajBk vP9nXo QUaueC m3YtLR FvZlgJ JJ8mAn HZtai3 5t8517 AC0Kqb 3qFUaq mKiQtr MwF INTERFACE [facility] [address], [place], [address], 03/14/2024 09:41:50 03/14/19 25 03/14/2024 XR, knee, 4 or more view [email or web address] ?Encry pted=s hAaTro YD8dLq bEUv6g %2BXZw aYqtaq 0bqfl% 2Fg9IQ a4ajBk vP9nXo QUaueC m3YtLR FvZlgJ JJ8mAn HZtai3 8m1102 AC0Kqb 3qFUaq mKiQtr MwF INTERFACE [facility] [address], [place], [address], 03/14/2024 10:51:44 03/14/19 25 03/14/2024 XR, knee, 4 or more view [email or web address] ?Encry pted=s hAaTro YD8dLq bEUv6g %2BXZw aYqtaq 0bqfl% 2Fg9IQ a4ajBk vP9nXo QUaueC m3YtLR FvZlgJ JJ8mAn HZtai3 6q1058 AC0Kqb 3qFUaq mKiQtr MwF INTERFACE [facility] [address] [place] [address], [place], [address], 03/14/2024 10:51:46 05/10/19 25 05/09/2024 XR, cervi dorina spine , 1 view [email or web address] ?Encry pted=s hAaTro YD8dLq bEUv6g %2BXZw aYqtaq 0bqfl% 2Fg9IQ a4ajBk vP9nXo QUaueC m3YtLR FvZlgJ JJ8mAn HZtai3 3m6790 AC0KqY n6MUKu mKiQtr MwF INTERFACE [facility] [address], [place], [address], 05/09/2024 15:56:43 05/10/19 25 05/09/2024 XR, cervi dorina spine , 1 view [email or web address] ?Encry pted=s hAaTro YD8dLq bEUv6g %2BXZw aYqtaq 0bqfl% 2Fg9IQ a4ajBk vP9nXo QUaueC m3YtLR FvZlgJ JJ8mAn HZtai3 6b4727 AC0KqY n6MUKu mKiQtr MwF INTERFACE [facility] [address], [place], [address], 05/09/2024 15:56:45 05/10/19 25 05/09/2024 XR, shoul eboni, 2 or more view [email or web address] ?Encry pted=s hAaTro YD8dLq bEUv6g %2BXZw aYqtaq 0bqfl% 2Fg9IQ a4ajBk vP9nXo QUaueC m3YtLR FvZlgJ JJ8mAn HZtai3 8p0877 AC0KqY n6MUKq vKiQtr MwF INTERFACE [facility] [address], [place], [address], 05/09/2024 15:59:16 05/10/19 25 05/09/2024 XR, shoul eboni, 2 or more view [email or web address] ?Encry pted=s hAaTro YD8dLq bEUv6g %2BXZw aYqtaq 0bqfl% 2Fg9IQ a4ajBk vP9nXo QUaueC m3YtLR FvZlgJ JJ8mAn HZtai3 1q2577 AC0KqY n6MUKq vKiQtr MwF INTERFACE [facility] [address], [place], [address], 05/09/2024 15:59:18 Result Notes Documentation Provider Name and Address Organization Details Recorded Time Xr, Cervical Spine, 1 View : [email or web address]? Encrypted=boWtHfeXT5zHzeP Uv6g%4ULPuyCwwde2xods%2Fg 0OTs7xlKafV3rJyTQeqkWq8Gy TNZeHlmNVY3xSsZYsql73o838 2WT7NrMu3IGIikPbYsdLoK Not Available [facility] 05/09/2024 15:56: 44 Xr, Cervical Spine, 1 View : [email or web address]? Encrypted=ovJtFozXQ0aEpjE Uv6g%7VYDonVoupl6hxpc%2Fg 6CVf7alHvpS9rXtZUwhaRl8Ds BICfMvhFOG8tHcGPuqk80k975 1FR1IoHb9KRGgwSxZwzWbF Not Available [facility] 05/09/2024 15:56: 46 Xr, Shoulder, 2 Or More View : [email or web address]? Encrypted=agAfAwpUN5vNfcB Uv6g%6VMNfzCyfhe9uohe%2Fg 6WFo5ufBbbG3sWjHTzizWs4Ar GUYdFftQLH4tUmCPyyp32t337 3KH9SsFw9VJYdzAwKtwYlQ Not Available [facility] 05/09/2024 15:59: 17 Xr, Shoulder, 2 Or More View : [email or web address] Encrypted=obIvUhzRT2cZrnP Uv6g%6RPXiaVhqgb6sgds%2Fg 3YVm6gaYltP9mOaOAndoSk8Eb FDPnOyvWCB4wWqQXzxk01z158 5TZ1KjVy8AVFkwPeIfmXnJ Not Available [facility] 05/09/2024 15:59: 19 Problems Name Problem SNOMED Code Status Onset Date Resolution Date Notes Provider Name and Address Organization Details Recorded Time Osteoarthri tis of right knee joint 8814437978039 00 Active 2023 Kandis Ortiz PA-C [address], [place], [address], [facility] 4 13:36:37 Pain of left knee joint 6135042071567 07 Active 2024 SARITA L'HEUREUX [facility] 5 09:33:12 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 3718970306 Active 2024 Kandis Ortiz PA-C [address], [place], [address], [facility] 5 09:59:08 Osteoarthri tis of left knee joint 3980017127420 09 Active 2024 Kandis Ortiz PA-C [address], [place], [address], [facility] 5 11:30:09 Effusion of joint of left knee 5271264424436 05 Active 2024 Kandis Ortiz PA-C [address], [place], [address], [facility] 5 11:30:14 Problem Notes None recorded. Procedures Surgical History Date Name Laterality Status Provider Name and Address Organization Details Recorded Time 5 Sports Knee Asp & Inj completed Kandis Ortiz PA-C [address], [place], [address], [facility] 06/20/2024 11:05:57 5 20307 Therapeutic Exercise (1:1) completed Max Campos PTA [address], [place], [address], [facility] 03/17/2024 10:28:01 5 08566: Hot or Cold Pack completed Max Scafuri, CAGE MAKER MACHINE [address], [place], [address], [facility] 03/17/2024 10:28:01 5 49543: Manual therapy completed Max Scafuri, CAGE MAKER MACHINE [address], [place], [address], [facility] 03/17/2024 10:28:01 5 Sports Knee Asp & Inj completed Kandis Ortiz PA-C [address], [place], [address], [facility] 03/14/2024 10:21:16 5 27149 Therapeutic Exercise (1:1) completed Max Scafuri, CAGE MAKER MACHINE [address], [place], [address], [facility] 03/10/2024 09:43:42 5 96436: Hot or Cold Pack completed Max Scafuri, CAGE MAKER MACHINE [address], [place], [address], [facility] 03/10/2024 09:43:42 5 39858: Manual therapy completed Max Scafuri, CAGE MAKER MACHINE [address], [place], [address], [facility] 03/10/2024 09:44:21 5 06909 Therapeutic Exercise (1:1) completed Max Scafuri, CAGE MAKER MACHINE [address], [place], [address], [facility] 02/29/2024 16:19:17 5 91506: Hot or Cold Pack completed Max Scafuri, CAGE MAKER MACHINE [address], [place], [address], [facility] 02/29/2024 16:19:17 5 55740: Manual therapy completed Max Scafuri, CAGE MAKER MACHINE [address], [place], [address], [facility] 02/29/2024 16:21:04 5 01086 Therapeutic Exercise (1:1) completed Max Scafuri, CAGE MAKER MACHINE [address], [place], [address], [facility] 02/25/2024 08:40:17 5 61243: Hot or Cold Pack completed Max Scafuri, CAGE MAKER MACHINE [address], [place], [address], [facility] 02/25/2024 08:40:17 5 08259: Manual therapy completed Max Scafuri, CAGE MAKER MACHINE [address], [place], [address], [facility] 02/25/2024 08:40:17 4 71592 Therapeutic Exercise (1:1) completed Max Scafuri, CAGE MAKER MACHINE [address], [place], [address], [facility] 02/14/2024 15:16:14 4 66138: Hot or Cold Pack completed Max Scafuri, CAGE MAKER MACHINE [address], [place], [address], [facility] 02/14/2024 15:16:14 4 43027: Manual therapy completed Max Scafuri, CAGE MAKER MACHINE [address], [place], [address], [facility] 02/14/2024 15:16:14 4 02004 Therapeutic Exercise (1:1) completed Max Scafuri, CAGE MAKER MACHINE [address], [place], [address], [facility] 02/11/2024 11:18:06 4 19837: Hot or Cold Pack completed Max Scafuri, CAGE MAKER MACHINE [address], [place], [address], [facility] 02/11/2024 11:18:06 12/20/202 4 09116: Manual therapy completed Max Scafuri, CAGE MAKER MACHINE [address], [place], [address], [facility] 02/11/2024 11:18:46 4 02472 Therapeutic Exercise (1:1) completed Eliecer Pyser, PT [address], [place], [address], [facility] 02/08/2024 08:50:51 4 03393: Hot or Cold Pack completed Eliecer Pyser, PT [address], [place], [address], [facility] 02/08/2024 08:50:51 4 75334: Manual therapy completed Eliecer Pyser, PT [address], [place], [address], [facility] 02/09/2024 14:53:25 4 62355 Therapeutic Exercise (1:1) completed Max Scafuri, CAGE MAKER MACHINE [address], [place], [address], [facility] 02/04/2024 09:45:50 4 56100: Hot or Cold Pack completed Max Scafuri, CAGE MAKER MACHINE [address], [place], [address], [facility] 02/04/2024 09:45:50 4 87131: Manual therapy completed Max Scafuri, CAGE MAKER MACHINE [address], [place], [address], [facility] 02/06/2024 10:21:52 Sports Shoulder completed Melba Chen, FINISHING DEPARTMENT SUPERVISOR [address], [place], [address], [facility] 01/27/2024 09:56:31 4 60237 Therapeutic Exercise (1:1) completed Eliecer Pyser, PT [address], [place], [address], [facility] 01/16/2024 21:16:54 4 78287: Hot or Cold Pack completed Eliecer Pyser, PT [address], [place], [address], [facility] 01/16/2024 21:16:54 4 71634: Manual therapy completed Eliecer Pyser, PT [address], [place], [address], [facility] 01/16/2024 21:16:54 4 22788 Therapeutic Exercise (1:1) cancelled Eliecer Pyser, PT [address], [place], [address], [facility] 01/12/2024 14:30:44 4 17213: Hot or Cold Pack cancelled Eliecer Pyser, PT [address], [place], [address], [facility] 01/12/2024 14:30:44 4 03461: Manual therapy cancelled Eliecer Pyser, PT [address], [place], [address], [facility] 01/12/2024 14:30:44 4 85043 Therapeutic Exercise (1:1) completed Eliecer Pyser, PT [address], [place], [address], [facility] 01/02/2024 15:10:38 4 87914: Hot or Cold Pack completed Eliecer Pyser, PT [address], [place], [address], [facility] 01/02/2024 15:10:38 4 20231: Manual therapy completed Eliecer Pyser, PT [address], [place], [address], [facility] 01/02/2024 15:10:38 4 57859 Therapeutic Exercise (1:1) completed Eliecer Pyser, PT [address], [place], [address], [facility] 12/30/2023 08:34:07 4 77007: Hot or Cold Pack completed Eliecer Pyser, PT [address], [place], [address], [facility] 12/30/2023 08:34:07 4 93827: Manual therapy completed Eliecer Pyser, PT [address], [place], [address], [facility] 12/30/2023 08:34:07 4 66621 Therapeutic Exercise (1:1) completed Eliecer Pyser, PT [address], [place], [address], [facility] 12/28/2023 08:54:20 4 27964: Hot or Cold Pack completed Eliecer Pyser, PT [address], [place], [address], [facility] 12/27/2023 10:07:24 4 07763: Manual therapy completed Eliecer Pyser, PT [address], [place], [address], [facility] 12/28/2023 08:54:14 4 79694 Therapeutic Exercise (1:1) completed Max Scafuri, CAGE MAKER MACHINE [address], [place], [address], [facility] 12/24/2023 13:30:20 4 35709: Hot or Cold Pack completed Max Scafuri, CAGE MAKER MACHINE [address], [place], [address], [facility] 12/24/2023 13:30:20 4 00858: Manual therapy completed Max Scafuri, CAGE MAKER MACHINE [address], [place], [address], [facility] 12/24/2023 13:30:20 20454 Therapeutic Exercise (1:1) completed Max Scafuri, CAGE MAKER MACHINE [address], [place], [address], [facility] 12/22/2023 14:39:43 00755: Hot or Cold Pack completed Max Scafuri, CAGE MAKER MACHINE [address], [place], [address], [facility] 12/22/2023 14:39:43 87458: Manual therapy completed Max Scafuri, CAGE MAKER MACHINE [address], [place], [address], [facility] 12/22/2023 14:39:43 42331 Therapeutic Exercise (1:1) completed Max Scafuri, CAGE MAKER MACHINE [address], [place], [address], [facility] 12/15/2023 13:49:31 14634: Hot or Cold Pack completed Max Scafuri, CAGE MAKER MACHINE [address], [place], [address], [facility] 12/15/2023 13:49:31 92199: Manual therapy completed Max Scafuri, CAGE MAKER MACHINE [address], [place], [address], [facility] 12/15/2023 13:49:31 77983 Therapeutic Exercise (1:1) completed Eliecer Rdz, PT [address], [place], [address], [facility] 12/13/2023 14:49:15 76666: Hot or Cold Pack completed Eliecer Rdz, PT [address], [place], [address], [facility] 12/13/2023 14:48:27 4 29565: Manual therapy completed Eliecer Rdz, PT [address], [place], [address], [facility] 12/11/2023 07:36:48 4 33477 Therapeutic Exercise (1:1) completed Max Scafuri, CAGE MAKER MACHINE [address], [place], [address], [facility] 12/10/2023 09:27:59 4 66633: Hot or Cold Pack completed Max Scafuri, CAGE MAKER MACHINE [address], [place], [address], [facility] 12/10/2023 09:27:59 4 86592: Manual therapy completed Max Scafuri, CAGE MAKER MACHINE [address], [place], [address], [facility] 12/10/2023 09:27:59 42746 Therapeutic Exercise (1:1) completed Max Scafuri, CAGE MAKER MACHINE [address], [place], [address], [facility] 12/08/2023 11:01:51 4 27270: Hot or Cold Pack completed Max Scafuri, CAGE MAKER MACHINE [address], [place], [address], [facility] 12/08/2023 11:01:51 4 46607: Manual therapy completed Max Scafuri, CAGE MAKER MACHINE [address], [place], [address], [facility] 12/08/2023 11:01:51 01380 Therapeutic Exercise (1:1) completed Eliecer Cobbser, PT [address], [place], [address], [facility] 12/02/2023 07:19:00 4 49574: Hot or Cold Pack completed Eliecer Pyser, PT [address], [place], [address], [facility] 12/02/2023 07:19:00 4 12382: Manual therapy completed Eliecer Pyser, PT [address], [place], [address], [facility] 12/02/2023 07:19:00 4 91478 Therapeutic Exercise (1:1) completed Max Scafuri, CAGE MAKER MACHINE [address], [place], [address], [facility] 11/29/2023 10:52:12 4 70542: Hot or Cold Pack completed Max Scafuri, CAGE MAKER MACHINE [address], [place], [address], [facility] 11/29/2023 10:52:12 4 66864: Manual therapy completed Max Scafuri, CAGE MAKER MACHINE [address], [place], [address], [facility] 11/29/2023 10:52:12 4 46505 Therapeutic Exercise (1:1) completed Eliecer Pyser, PT [address], [place], [address], [facility] 11/25/2023 07:12:11 4 89662: Hot or Cold Pack completed Eliecer Pyser, PT [address], [place], [address], [facility] 11/25/2023 07:12:11 4 17832: Manual therapy completed Eliecer Pyser, PT [address], [place], [address], [facility] 11/25/2023 07:12:11 4 49133 Therapeutic Exercise (1:1) completed Eliecer Pyser, PT [address], [place], [address], [facility] 11/23/2023 16:00:35 4 68929: Hot or Cold Pack completed Eliecer Cobbser, PT [address], [place], [address], [facility] 11/23/2023 16:00:35 4 10407: Manual therapy completed Eliecer Pyser, PT [address], [place], [address], [facility] 11/23/2023 16:00:35 4 41690 Therapeutic Exercise (1:1) completed Max Scafuri, CAGE MAKER MACHINE [address], [place], [address], [facility] 11/17/2023 14:30:04 4 01168: Hot or Cold Pack completed Max Scafuri, CAGE MAKER MACHINE [address], [place], [address], [facility] 11/17/2023 14:30:04 4 13116: Manual therapy completed Max Scafuri, CAGE MAKER MACHINE [address], [place], [address], [facility] 11/17/2023 14:30:04 4 02402 Therapeutic Exercise (1:1) completed Max Scafuri, CAGE MAKER MACHINE [address], [place], [address], [facility] 11/15/2023 09:13:50 4 39051: Hot or Cold Pack completed Max Scafuri, CAGE MAKER MACHINE [address], [place], [address], [facility] 11/15/2023 09:13:50 4 07230: Manual therapy completed Max Scafuri, CAGE MAKER MACHINE [address], [place], [address], [facility] 11/15/2023 09:13:50 4 65513 Therapeutic Exercise (1:1) completed Eliecer Pyser, PT [address], [place], [address], [facility] 11/09/2023 20:05:36 4 15745: Hot or Cold Pack completed Eliecer Pyser, PT [address], [place], [address], [facility] 11/09/2023 20:05:36 4 28723: Manual therapy completed Eliecer Pyser, PT [address], [place], [address], [facility] 11/09/2023 20:05:36 4 66964 Therapeutic Exercise (1:1) completed Max Scafuri, CAGE MAKER MACHINE [address], [place], [address], [facility] 11/08/2023 08:38:17 4 72668: Hot or Cold Pack completed Max Scafuri, CAGE MAKER MACHINE [address], [place], [address], [facility] 11/08/2023 08:38:17 4 10017: Manual therapy completed Max Scafuri, CAGE MAKER MACHINE [address], [place], [address], [facility] 11/08/2023 08:38:17 4 77186 Therapeutic Exercise (1:1) completed Eliecer Pyser, PT [address], [place], [address], [facility] 11/02/2023 06:53:00 4 15479: Hot or Cold Pack completed Eliecer Pyser, PT [address], [place], [address], [facility] 11/02/2023 06:53:00 4 76336: Manual therapy completed Eliecer Pyser, PT [address], [place], [address], [facility] 11/02/2023 06:53:00 4 49281 Therapeutic Exercise (1:1) completed Eliecer Pyser, PT [address], [place], [address], [facility] 10/29/2023 10:31:07 4 80126: Hot or Cold Pack completed Eliecer Pyser, PT [address], [place], [address], [facility] 10/29/2023 10:31:07 4 [address]: Manual therapy completed Eliecer Pyser, PT [address], [place], [address], [facility] 11/01/2023 13:46:21 4 [id number] Therapeutic Exercise (1:1) completed Max Sorianori, CAGE MAKER MACHINE [address], [place], [address], [facility] 10/27/2023 11:52:03 4 85518: Hot or Cold Pack completed Max Sorianori, CAGE MAKER MACHINE [address], [place], [address], [facility] 10/27/2023 11:52:03 4 02866: Manual therapy completed Max Sorianori, CAGE MAKER MACHINE [address], [place], [address], [facility] 10/27/2023 11:52:03 4 53054 Therapeutic Exercise (1:1) completed Eliecer Pyser, PT [address], [place], [address], [facility] 10/21/2023 09:43:07 4 31570: Hot or Cold Pack completed Eliecer Pyser, PT [address], [place], [address], [facility] 10/21/2023 09:43:06 4 42524: Manual therapy completed Eliecer Pyser, PT [address], [place], [address], [facility] 10/21/2023 09:43:07 4 35089 Therapeutic Exercise (1:1) completed Max Scafuri, CAGE MAKER MACHINE [address], [place], [address], [facility] 10/18/2023 07:45:44 4 79124: Hot or Cold Pack completed Max Scafuri, CAGE MAKER MACHINE [address], [place], [address], [facility] 10/18/2023 07:45:44 4 99106: Manual therapy completed Max Scafuri, CAGE MAKER MACHINE [address], [place], [address], [facility] 10/18/2023 07:45:44 4 67036 Therapeutic Exercise (1:1) completed Max Scafuri, CAGE MAKER MACHINE [address], [place], [address], [facility] 10/15/2023 07:54:26 4 89603: Hot or Cold Pack completed Max Scafuri, CAGE MAKER MACHINE [address], [place], [address], [facility] 10/15/2023 07:53:24 4 24375: Manual therapy completed Max Scafuri, CAGE MAKER MACHINE [address], [place], [address], [facility] 10/15/2023 07:54:18 4 80611 Therapeutic Exercise (1:1) completed Eliecer Pyser, PT [address], [place], [address], [facility] 10/11/2023 21:18:11 4 89909: Hot or Cold Pack completed Eliecer Pyser, PT [address], [place], [address], [facility] 10/11/2023 21:19:01 4 23679: Manual therapy completed Eliecer Cobbser, PT [address], [place], [address], [facility] 10/11/2023 21:18:20 4 72401 Therapeutic Exercise (1:1) completed Eliecer Cobbser, PT [address], [place], [address], [facility] 10/07/2023 21:30:25 4 33845: Low complexity PT Eval completed Eliecer Cobbser, PT [address], [place], [address], [facility] 10/07/2023 21:30:31 4 LATERAL EPICONDYLAR RELEASE (SURG) completed DESIRAE MARINELLI [facility] 09/17/2023 12:49:07 4 Sports Shoulder completed Deena Toledo MD [address], [place], [address], [facility] 06/14/2023 09:16:54 4 Sports Knee 4&1 cancelled Kandis Ortiz PA-C [address], [place], [address], [facility] 05/26/2023 13:36:27 Imaging Results None recorded. Procedure Notes None recorded. Medical Equipment None Reported. Allergies No known drug allergies Medications Name Sig Start Date Stop Date Status Note LastModified by Organization Details LastModified Time celecoxib 200 mg capsule TAKE ONE CAPSULE BY MOUTH EVERY DAY active Not Available Not Available No t Available amoxicillin 500 mg capsule TAKE 1 CAPSULE BY MOUTH 3 TIMES A DAY FOR 7 DAYS 06/13 completed Not Available Not Available Not Available loperamide 2 mg capsule TAKE ONE CAPSULE BY MOUTH EVERY 4 HOURS NEEDED FOR LOOSE STOOL.DO NOT EXCEED 16MG/DAY active Not Available Not Available No t Available aspirin 325 mg tablet TAKE ONE TABLET BY MOUTH EVERY DAY FOR 14 DAYS 03/14 completed Not Available Not Available Not Available meloxicam 15 mg tablet TAKE ONE TABLET BY MOUTH EVERY DAY 08/18 completed Not Available Not Available Not Available acetaminoph en 500 mg tablet TAKE TWO TABLETS BY MOUTH THREE TIMES A DAY 03/14 completed Not Available Not Available Not Available amoxicillin 500 mg tablet TAKE ONE TABLET BY MOUTH THREE TIMES A DAY FOR 7 DAYS 06/13 completed Not Available Not Available Not Available acetaminoph en ER 650 mg tablet,exte nded release TAKE ONE TABLET BY MOUTH EVERY 12 HOURS FOR 3 DAYS 06/20 completed Not Available Not Available Not Available oxycodone-a cetaminophe n 5 mg-325 mg tablet TAKE ONE TABLET BY MOUTH EVERY 6 HOURS NEEDED FOR PAIN 08/18 completed Not Available Not Available Not Available metoclopram ronal 5 mg tablet TAKE ONE TABLET BY MOUTH EVERY DAY FOR 3 DAYS 06/20 completed Not Available Not Available Not Available BD Luer-Rayna Syringe 3 mL 23 gauge x 1 1/2 USE MONTHLY TO INJECT TESTOSTER ONE 06/13 completed Not Available Not Available Not Available IBU 600 mg tablet TAKE ONE TABLET BY MOUTH EVERY 6 HOURS NEEDED FOR PAIN 03/14 completed Not Available Not Available Not Available docusate sodium 100 mg capsule TAKE ONE CAPSULE BY MOUTH EVERY DAY NEEDED 03/14 completed Not Available Not Available Not Available sertraline 25 mg tablet 06/20 completed Not Available Not Available Not Available diclofenac sodium 75 mg tablet,ana yed release TAKE ONE TABLET BY MOUTH TWICE A DAY FOR 14 DAYS .STOP IF ANY NAUSEA,VO MITING,GI UPSET,CON STIPATION OR DIARRHEA AND NOTIFY OFFICE. 08/18 completed Not Available Not Available Not Available bisacodyl 5 mg tablet,ana yed release TAKE 2 TABLETS BEFORE FIRST DOSE OF LIQUID PREP 03/14 completed Not Available Not Available Not Available diazepam 10 mg tablet TAKE ONE TABLET BY MOUTH 30 MINUTES PRIOR TO DENTAL APPOINTME NT 08/18 completed Not Available Not Available Not Available testosteron e cypionate 200 mg/mL intramuscul ar oil INJECT 0.5ML INTRAMUSC ULARLY MONTHLY 08/18 completed Not Available Not Available Not Available methylpredn isolone 4 mg tablets in a dose pack TAKE SIX TABLETS FOR 1 DAY, THEN FIVE TABLETS FOR 1 DAY, THEN FOUR TABLETS FOR 1 DAY,THEN THREE TABLETS FOR 1 DAY, THEN TWO TABLETS FOR 1 DA active Not Available Not Available No t Available naproxen 500 mg tablet TAKE ONE TABLET BY MOUTH TWICE A DAY FOR 3 DAYS 06/20 completed Not Available Not Available Not Available oxycodone 5 mg tablet Take 1 tablet every 4 hours by oral route as needed. 03/14 completed Not Available Not Available Not Available azithromyci n 500 mg tablet TAKE 1 TABLET BY MOUTH WITH FOOD EVERY DAY FOR 10 DAYS AVOID ALCOHOL, MAY CAUSE SEVERE STOMACH UPSET 06/20 completed Not Available Not Available Not Available GaviLyte-G 236 gram-22.74 gram-6.74 gram-5.86 gram oral solution FOLLOW DIRECTION S PROVIDED BY PHYSICIAN 'S OFFICE DIRECTED 03/14 completed Not Available Not Available Not Available Vitals Date Recorded Body height Body mass index (BMI) Body weight Provider Name and Address Organization Details Last Updated DateTime 05/08/2024 177.8 cm 30.1 kg/m2 89164.4 g SARITA MARIEE [facility] 05/08/2024 11:07:23 Date Recorded Body height Body mass index (BMI) Body weight Provider Name and Address Organization Details Last Updated DateTime 05/09/2024 177.8 cm 30.1 kg/m2 72605.4 g EMANUEL MAHER [facility] 05/09/2024 15:51:56 Date Recorded Body height Body mass index (BMI) Body weight Provider Name and Address Organization Details Last Updated DateTime 06/20/2024 177.8 cm 30.1 kg/m2 43207.4 g Rodger Tee [facility] 06/20/2024 10:42:51 Date Recorded Body height Body mass index (BMI) Body weight Provider Name and Address Organization Details Last Updated DateTime 09/19/2024 177.8 cm 30.1 kg/m2 19722.4 g Lay Long [facility] 09/19/2024 09:09:22 Social History Question Answer Notes LastModified by Organizat ion Details LastModified Time Tobacco Smoking Status Never Smoker SARITA simon [facility] 03/14/2024 09:34:58 Have You Ever Been Counseled For Unhealthy Alcohol Use? No Information not available 03/14/2024 What Is Your Relationship Status? Single Information not available 03/14/2024 Sex: Unknown Functional Status Question Answer Note LastModified by Organizat ion Details LastModified Time How many times per week do you consume alcohol? Less than 1 time per week Information not available 03/14/2024 Do you use any illicit or recreational drugs? Yes Information not available 03/14/2024 Do you or have you ever used any other forms of tobacco or nicotine? No Information not available 03/14/2024 What is your level of alcohol consumption? Occasional Information not available 03/14/2024 Mental Status None recorded. Family History Nothing Reported. Medical History Condition Response Allergies/Hayfever N Coronary Artery Disease N Breathing or lung disorders N Anxiety/Depression N Emphysema N Nerve Disorders N Thyroid Problems N COPD N Pacemaker N Anemia N Kidney/Bladder Problems N Vascular Disease N Heart Trouble N Heart Attack ([place]) N Gastrointestinal Disease N Cholesterol N Diabetes N Autoimmune disease N Bleeding Disorder N Orthotics N Arthritis N Seizures/Epilepsy N Blood Clot N AIDS/HIV N Congestive Heart Failure (CHF) N Acid Reflux (GERD) N Cancer N Stroke N Asthma N Circulation Problems N Peripheral Vascular Disease N Sleep Apnea N Hepatitis N Heart Disease N Rheumatoid Arthritis N Arrhythmia N Pulmonary Embolism N Headaches N Fibromyalgia N Hypertension N Osteoporosis N Past Encounters Encounter ID Performer Location Encounter Start Date Encounter Closed Date Diagnosis/Indication Diagnosis SNOMED-CT Code Diagnosis ICD10 Code Diagnosis IMO Codes Diagnosis Note [id number] MD Carlos Trejolibrado [address] [place] [address] 06/14/2023 08:23:20 06/23/2023 10:07:18 Osteoarthritis of joint of right shoulder region 0021952152 69211 M19.011 Anterior t o posterior tear of superior glenoid labrum of right shoulder 8593076695 6799640 S43.431A Impingemen t syndrome of right shoulder region 9703095865 88253 M75.41 [id number] Bouchra wallace MD [facility] [address] [place] [address] 06/23/2023 15:18:40 07/17/2023 08:30:38 Right lateral elbow tendinopathy [id number] 30922 M77.11 [id number] MD Carlos Trejonilibrado [address] [place] [address] 08/30/2023 08:42:39 09/15/2023 09:16:35 Calcific tendinitis of right shoulder 1800240572 54067 M75.31 Anterior t o posterior tear of superior glenoid labrum of right shoulder 0435559692 8240906 S43.431D [id number] MD Javi Trejo [address] [place] [address] 10/01/2023 07:58:17 10/28/2023 10:16:45 Follow-up orthopedic assessment [id number] Z47.89 [id number] Melba Chen, FINISHING DEPARTMENT SUPERVISOR [facility] [address] [place] [address] 10/01/2023 08:42:50 10/22/2023 07:36:27 [id number] Eliecer Rdz, PT [facility] [address] [place] [address] 10/08/2023 10:57:11 10/08/2023 11:44:24 Subacromial bursitis of right shoulder 8564073904 342072 M75.51 [id number] Eliecer Rdz, PT [facility] [address] [place] [address] 10/11/2023 16:52:13 10/11/2023 17:45:24 Subacromial bursitis of right shoulder 5307277452 784972 M75.51 [id number] Max Campos, CAGE MAKER MACHINE [facility] [address] [place] [address] 10/15/2023 06:56:19 10/15/2023 07:32:02 Subacromial bursitis of right shoulder 3728286027 144799 M75.51 [id number] Max Campos, CAGE MAKER MACHINE [facility] [address] [place] [address] 10/18/2023 06:59:02 10/18/2023 09:00:31 Subacromial bursitis of right shoulder 7513266104 598199 M75.51 [id number] Eliecer Pyser, PT [facility] [address] [place] [address] 10/22/2023 07:27:44 10/22/2023 09:10:50 Subacromial bursitis of right shoulder [id number] 103351 M75.51 [id number] Max Christieri, CAGE MAKER MACHINE [facility] [address] [place] [address] 10/27/2023 10:25:53 10/27/2023 11:26:53 Subacromial bursitis of right shoulder 7746033072 [id number] M75.51 [id number] Melba Chen, FINISHING DEPARTMENT SUPERVISOR [facility] [address] [place] [address] 10/29/2023 08:34:43 11/11/2023 08:58:05 [id number] Eliecer Cobbser, PT [facility] [address] [place] [address] 11/01/2023 10:51:43 11/01/2023 11:34:48 Subacromial bursitis of right shoulder 7485510314 586319 M75.51 [id number] Eliecer Pyser, PT [facility] [address] [place] [address] 11/03/2023 11:55:57 11/03/2023 13:23:40 Subacromial bursitis of right shoulder 7220603083 728761 M75.51 [id number] Max Trefuri, CAGE MAKER MACHINE [facility] [address] [place] [address] 11/08/2023 07:43:04 11/08/2023 09:39:09 Subacromial bursitis of right shoulder 3330526351 988058 M75.51 [id number] Eliecer Pyser, PT [facility] [address] [place] [address] 11/10/2023 16:04:38 11/10/2023 16:50:11 Subacromial bursitis of right shoulder 4835361255 409433 M75.51 [id number] Max Campos, CAGE MAKER MACHINE [facility] [address] [place] [address] 11/15/2023 07:56:18 11/15/2023 09:33:59 Subacromial bursitis of right shoulder 7082308392 993159 M75.51 [id number] Max Campos, CAGE MAKER MACHINE [facility] [address] [place] [address] 11/17/2023 11:44:55 11/17/2023 12:44:36 Subacromial bursitis of right shoulder 7582488110 251176 M75.51 [id number] Eliecer Rdz, PT [facility] [address] [place] [address] 11/24/2023 17:58:55 11/24/2023 18:08:48 Subacromial bursitis of right shoulder 0806369304 176559 M75.51 [id number] Eliecer Rdz, PT [facility] [address] [place] [address] 11/26/2023 07:24:20 11/26/2023 10:04:50 Subacromial bursitis of right shoulder 0791327477 440568 M75.51 [id number] Max Campos, CAGE MAKER MACHINE [facility] [address] [place] [address] 11/29/2023 08:34:47 11/29/2023 09:36:28 Subacromial bursitis of right shoulder 3201256442 538410 M75.51 [id number] Melba Chen, FINISHING DEPARTMENT SUPERVISOR [facility] [address] [place] [address] 12/02/2023 08:40:31 12/22/2023 14:50:39 [id number] Eliecer Rdz, PT [facility] [address] [place] [address] 12/03/2023 06:56:25 12/03/2023 07:24:24 Subacromial bursitis of right shoulder 2309399748 537980 M75.51 [id number] Max Sorianori, CAGE MAKER MACHINE [facility] [address] [place] [address] 12/08/2023 09:37:07 12/08/2023 10:53:30 Subacromial bursitis of right shoulder 3799052468 894435 M75.51 [id number] Max Sorianori, CAGE MAKER MACHINE [facility] [address] [place] [address] 12/10/2023 07:28:06 12/10/2023 08:52:37 Subacromial bursitis of right shoulder 1748678771 101314 M75.51 [id number] Eliecer Cobbser, PT [facility] [address] [place] [address] 12/13/2023 13:32:47 12/13/2023 15:03:56 Subacromial bursitis of right shoulder 9319652558 685483 M75.51 [id number] Max Campos, CAGE MAKER MACHINE [facility] [address] [place] [address] 12/15/2023 09:56:38 12/15/2023 11:31:40 Subacromial bursitis of right shoulder 2935522109 274464 M75.51 [id number] Max Campos, CAGE MAKER MACHINE [facility] [address] [place] [address] 12/22/2023 10:06:22 12/22/2023 10:39:27 Subacromial bursitis of right shoulder [id number] 174634 M75.51 [id number] Melba Chen, FINISHING DEPARTMENT SUPERVISOR [facility] [address] [place] [address] 12/24/2023 09:45:56 01/13/2024 07:22:56 [id number] Max Sorianori, CAGE MAKER MACHINE [facility] [address] [place] [address] 12/24/2023 10:31:21 12/24/2023 11:56:57 Subacromial bursitis of right shoulder 5167937205 895074 M75.51 [id number] Eliecer Cobbser, PT [facility] [address] [place] [address] 12/28/2023 07:30:47 12/28/2023 10:26:58 Subacromial bursitis of right shoulder 5725717124 812006 M75.51 [id number] Eliecer Pyser, PT [facility] [address] [place] [address] 12/31/2023 07:33:57 12/31/2023 08:47:31 Subacromial bursitis of right shoulder 9745562280 779366 M75.51 [id number] Eliecer Pyser, PT [facility] [address] [place] [address] 01/04/2024 07:46:36 01/04/2024 11:03:09 Subacromial bursitis of right shoulder 3271066514 629365 M75.51 [id number] Eliecer Cobbser, PT [facility] [address] [place] [address] 01/18/2024 07:28:44 01/18/2024 10:45:53 Subacromial bursitis of right shoulder 2082348880 846935 M75.51 [id number] Melba Chen, FINISHING DEPARTMENT SUPERVISOR [facility] [address] [place] [address] 01/27/2024 09:05:07 02/11/2024 15:32:49 [id number] Max Christieri, CAGE MAKER MACHINE [facility] [address] [place] [address] 02/04/2024 07:30:53 02/04/2024 08:40:02 Subacromial bursitis of right shoulder [id number] 144438 M75.51 [id number] Eliecer Rezaser, PT [facility] [address] [place] [address] 02/09/2024 12:39:49 02/09/2024 13:03:49 Subacromial bursitis of right shoulder 7756474128 [id number] M75.51 [id number] Max Sorianori, CAGE MAKER MACHINE [facility] [address] [place] [address] 02/11/2024 08:01:13 02/11/2024 09:57:26 Subacromial bursitis of right shoulder 4587928266 854173 M75.51 [id number] Max Campos, CAGE MAKER MACHINE [facility] [address] [place] [address] 02/14/2024 15:02:18 02/14/2024 16:08:14 Subacromial bursitis of right shoulder 5926712717 389170 M75.51 [id number] Max Campos, CAGE MAKER MACHINE [facility] [address] [place] [address] 02/25/2024 15:26:42 02/25/2024 16:01:46 Subacromial bursitis of right shoulder 4510715177 [id number] M75.51 [id number] Max Campos, CAGE MAKER MACHINE [facility] [address] [place] [address] 02/29/2024 15:13:39 02/29/2024 16:06:29 Subacromial bursitis of right shoulder 3503364709 [id number] M75.51 [id number] Max Campos, CAGE MAKER MACHINE [facility] [address] [place] [address] 03/10/2024 07:59:06 03/10/2024 09:02:26 Subacromial bursitis of right shoulder 3380761768 [id number] M75.51 [id number] Kandis Ortiz PA-C [facility] [address] [place] [address] 03/14/2024 09:25:23 03/24/2024 11:49:49 Pain of left knee joint 8330395819 89136 M25.562 [id number] Osteoarthr itis of left knee joint 2278277623 90205 M17.12 [id number] Reviewed patient's imaging and exam findings in detail with him. He sustained a traumatic injury to the left knee resulting in acute flareup of his underlying left knee osteoarthr itis with left knee effusion. Recommende d left knee aspiration and cortisone injection for symptomati c relief. Encouraged avoidance of high-impac t activities . May repeat injections as often as every 3 months. Encouraged him to purchase an over-the-c ounter compressio n sleeve to prevent recurrent knee effusion moving forward. All questions and concerns were addressed and answered. He tolerated aspiration well. We were able to pull off 60 cc of synovial fluid. Follow-up as needed. Effusion o f joint of left knee 6137463054 35728 M25.744 [id number] Max Campos, CAGE MAKER MACHINE [facility] [address] [place] [address] 03/17/2024 07:55:30 03/17/2024 08:28:14 Subacromial bursitis of right shoulder 7397426678 [id number] M75.51 [id number] RICK Khan [facility] [address] [facility] [place] [address] 05/08/2024 10:59:45 05/22/2024 15:06:47 Osteoarthritis of left knee joint 6589739388 97681 M17.12 [id number] Reviewed patient's imaging and exam findings in detail with him. Discussed that he had a traumatic fall resulting in acute flareup of his underlying left knee osteoarthr itis. He has a large palpable effusion today. Discussed that it is too early to repeat aspiration or injection today. He should return in 1 month's time we can aspirate the knee and perform injection at that time. Discussed that he do not like to put needles into the more frequently than every 3 months to minimize risk. Also encouraged icing which she has not been doing accompanie d by elevation and compressio n sleeve which she may purchase over-the-c ounter. All questions and concerns were addressed and answered. Effusion o f joint of left knee 7030006270 99504 M25.148 [id number] Melba Chen, FINISHING DEPARTMENT SUPERVISOR [facility] [address] [place] [address] 05/09/2024 15:05:57 05/26/2024 15:35:54 Pain of right shoulder region 9184721825 M25.511 [id number] RICK Khan [address] [place] [address] 06/20/2024 10:35:52 07/06/2024 15:37:56 Osteoarthritis of left knee joint 3114251826 37383 M17.12 [id number] Reviewed patient's imaging and exam findings in detail with him. He sustained a traumatic injury to the left knee resulting in acute flareup of his underlying left knee osteoarthr itis with left knee effusion. Recommende d left knee aspiration and cortisone injection for symptomati c relief. Encouraged avoidance of high-impac t activities . May repeat injections as often as every 3 months. Encouraged him to purchase an over-the-c ounter compressio n sleeve to prevent recurrent knee effusion moving forward. All questions and concerns were addressed and answered. He tolerated aspiration well. We were able to pull off 60 cc of synovial fluid. Follow-up as needed. He has been getting recurrent effusions. Encouraged more diligent use of his compressio n knee brace. It seems that the effusion volumes are diminishin g each time so hopefully we can get this under better control moving forward on our current schedule. Effusion o f joint of left knee 1605674082 29055 M25.886 [id number] RICK Wright [address] [facility] [place] [address] 09/19/2024 08:53:58 09/27/2024 14:45:47 Osteoarthritis of right knee joint 8755801674 08348 M17.11 Disorder o f left sciatic nerve 2542418630 42945 M54.32 [id number] Health Concerns Section Related Observation LastModified by Organization Detai ls LastModified Time None Recorded Concern Status LastModified by Organization Details LastModified Time None Recorded Advance Directives Directive None Recorded Payers Insurance Date Sequence Insurance Name Policy Number Policy Lowe Covered Member ID Lowe Member ID Guarantor Name 03/14/2024 2 [place] Inderjit Mcclure [id number] Inderjit Mcclure 01/12/2024 PAYMENT PLAN Inderjit Mcclure 02/10/2024 2 [facility] PUBLIC [facility]ANS [facility] TYPE I (HMO) [id number] Loi Mcclure [id number] Inderjit Mcclure 09/27/2024 1 [facility] (MEDICAID HMO) [id number] Inderjit Mcclure [id number] Inderjit Mcclure Notes Date Note Type Note Provider Name and Address Organization Details Recorded Time 03/17/2024 text/html Pt reports 03/03 pain today. Max Campos, CAGE MAKER MACHINE [address], [place], [address], [facility] 03/17/2024 10:29:09 05/08/2024 text/html ROS as noted in the HPI I am seeing the patient under the general supervision of Dr. Gill who was available but who did not see the patient. HPI:Patient is a 54 year old male who presents today with chief complaint of left knee pain and swelling. He is known to me for left knee OA. Last had an aspiration and injection in February. Had sustained a mechanical slip and fall on the ice and subsequently developed increased pain and swelling and presents today for evaluation. States that he fell backwards and struck his right shoulder and his head. He did not go to the emergency department initially but did after 3 days due to headaches. Did not land on his knee. Describes pain and swelling which is limiting his motion causing severe pain making it difficult for him to ascend stairs Kandis Ortiz PA-C [email or web address], [place], [address], [facility] 05/08/2024 11:31:20 05/09/2024 text/html ROS as noted in the HPI Inderjit is a 53-year-old gentleman who is status post SADDCE with extensive glenohumeral debridement done by Dr. Toledo 09/17/2023. at this same time he also had a lateral epicondylar debridement done by Dr. Cam. He has struggled with range of motion. He apparently fell injuring his shoulder. He is here today for further evaluation he reports some discomfort through the shoulder no weakness Melba Chen, FINISHING DEPARTMENT SUPER[employer] [address], [place], [address], [facility] 05/09/2024 16:34:44 06/20/2024 text/html ROS as noted in the HPI I am seeing the patient under the general supervision of Dr. Gill who was available but who did not see the patient. Patient is a 53 year old male who presents today with chief complaint of left knee pain. He is known to me for history of right knee osteoarthritis. Last knee injection was 03/14/2024. He also had a fall in late March early April resulting in increased left knee effusion. Presents today for left knee aspiration and cortisone injection. Kandis Ortiz PA-C [address], [place], [address], [facility] 06/20/2024 11:10:56 09/19/2024 text/html I am seeing the patient today under the supervision of Dr. Guajardo who was available but who did not see the patient.Inderjit returns in follow-up for the left knee. She was seen previously in May and treated with an injection for advancing osteoarthritis of the left knee (right is known to be worse). He had marginal relief. He reports significant pain through the sciatic area or left side of the back through the leg which is causing most of his symptoms. He is expressing pain through the medial aspect of the left knee.Past family, medical, social history and review of systems has been reviewed, updated and is located in the patient s chart.Examination: Slightly antalgic gait. Bilateral knees varus alignment. No effusion to the left knee with low-grade tenderness medially. Ligamentously stable. Calf was suppleImpression: Left-sided sciatica and left knee arthritisPlan: Lengthy discussion regarding being able to treat both problems concomitantly. Recommended oral prednisone taper transitioning to Celebrex upon completion as well as physical therapy for the lumbar spine, once completed then for the knee. Potential role for injections following this conservative program. Jeremías Claros PA-C [address], [place], [address], [facility] 09/19/2024 10:05:26
== END 2025-02-05 17:51 | disposition home or self-care (01) ==
LOC: HO.MRI 17:50
PROVIDERS: Visit Provider Orthopaedic Surgery
DX: S83.242A Other tear of medial meniscus, current injury, left knee, initial encounter (principal)
CPT/HCPCS: 73721